=== PATIENT | male | born 1945 | race Caucasian/White ===

== ENCOUNTER 2016-10-30 02:47 | Inpatient (IN) | payer MEDICARE ==
[~2016-10-30] VITALS: Ht 185.4 cm; Wt 78.5 kg
[2016-10-30] VITALS (62 sets, daily range): BP systolic 72–141; BP diastolic 47–109; Ht 185.4 cm; Wt 78.5 kg
--- NOTE | ~2016-10-30 | EC ---
PATIENT:PEYTON YATES DATE OF SERVICE: 10/30/16 SEX: M MEDICAL RECORD: [id number] DATE OF : 41 LOCATION:[facility] D230 AGE OF PATIENT: 71 ADMISSION DATE: 10/30/16 REFERRING PHYSICIAN: INTERPRETING PHYSICIAN: CHRIS BARRAZA MD ECHOCARDIOGRAM REPORT ECHO CHARGES 5 ECHO LIMITED CLINICAL DIAGNOSIS: CHF ECHOCARDIOGRAPHIC MEASUREMENTS (adult normal given) AC root (d.<3.7cm) LV Septum d (<1.2 cm> Valve Excursion LV Septum (systole) Left Atria (s.<4.0cm> 4.2 LVPW d(<1.2cm) RV (d.<2.3cm) 4.2 LVPW (sytole) LV diastole(<5.6CM) 5.1 MV E-F(>70mm/sec) 3.8 LV systole LVOT Diameter MV exc.(>10mm) Est.ejection fraction (50-75%) Pericardial Effusion N DOPPLER: LVIT A E LA RVSP LVOT AOP1/2T Asc. Ao RVOT RA PA AV Gradient Peak AV Mean AV Area MV Gradient Peak MV Mean MV Area COMMENTS: Machine Coil Assembler: Leon NAVARRO Paster Supervisor:2 Dr. Roque TAPE# PACS DATE OF SERVICE: 11/06/2016 Echocardiogram FINDINGS: 1. Left ventricular chamber size is within normal limits. Left ventricular systolic function is normal. Overall ejection fraction 50%. 2. Left atrium is enlarged at 4.2 cm. Right atrium and right ventricular chamber sizes are as well mildly dilated. 3. Valvular structures have normal structure and motion. ECHOCARDIOGRAM REPORT [id number] PEYTON YATES 4. Doppler interrogation reveals no significant valvular insufficiency or stenosis. 5. No evidence of pericardial effusion or left ventricular thrombus. TRANSINT:[id number] Voice Confirmation ID: [id number] DOCUMENT ID: [id number] 11/13/2016 Edited to correct date of service, [facility]. CHRIS BARRAZA MD CC: [id number] DICTATION DATE: 11/06/16 1529 PYROMETER TEMPERATURE REGULATOR: 11/06/16 1606 ADM IN [place] [id number] [place] [address]
--- NOTE | ~2016-10-30 | CN ---
PATIENT NAME:PEYTON WASHBURN MEDICAL RECORD: [id number] : 41 LOCATION:[facility].2311 ADMIT DATE: 10/30/16 ACCOUNT: [id number] CONSULTING PHYSICIAN: VANDANA WALKER MD REFERRING PHYSICIAN: BRADY CANTU MD DATE OF CONSULTATION: 10/30/2016 CONSULT REQUESTING PHYSICIAN: Dr. Brady Cantu. REASON FOR CONSULTATION: Vent management and septic shock. HISTORY OF PRESENT ILLNESS: Mr. Washburn is a 71-year-old gentleman who was transferred from outside facility. On arrival to the ER, the patient was hypotensive, hypoxic with SpO2 in mid 70s and the patient was electively intubated and IV fluid resuscitation. Now, the patient is orally intubated and sedated. The history was taken mainly by talking to the nursing staff and talking to the ER doctor as well as with Dr. Cantu. REVIEW OF SYSTEMS: The detail is not obtainable. PAST MEDICAL HISTORY: 1. Dementia. 2. Chronic dysphagia. 3. Abnormal electrolytes. 4. Peripheral vascular disease. 5. Schizophrenia. 6. Osteoporosis. 7. History of tobacco dependence in the past. 8. Coronary artery disease. 9. History of renal failure. PAST SURGICAL HISTORY: He is status post PEG placement. ALLERGIES: There are no known drug allergies. PRESENT MEDICATIONS: [employer] was reviewed. PERSONAL AND SOCIAL HISTORY: The detail is not obtainable, but he is an ex-smoker, nondrinker. FAMILY HISTORY: Noncontributory. PHYSICAL EXAMINATION: GENERAL: Now, the patient is orally intubated and sedated. VITAL SIGNS: The blood pressure is 95/63, pulse is 67, respiration is 16, temperature 100.4, SPO2 is 100% on mechanical ventilation, assist control with 65% oxygen. HEENT: Conjunctivae is pink, sclerae nonicteric. NECK: Supple, no JVD. CHEST: There are crackles at the left base. No wheezing. HEART: Rhythm regular, normal sound, no murmur. ABDOMEN: Soft, bowel sounds present. No hepatosplenomegaly. The PEG tube is in place. RECTAL: Deferred. EXTREMITIES: No cyanosis, no clubbing, no pedal edema. CONSULT REPORT [id number] PEYTON WASHBURN SKIN: Warm, normal turgor. CENTRAL NERVOUS SYSTEM: The patient is orally intubated and sedated. LABORATORY DATA: CBC: WBC 17.3, hemoglobin 15.1, hematocrit 46.6. The platelet count is 232. Chemistry: Sodium 136, potassium 4.9, BUN is 38, creatinine 1.1, glucose 126. ABG on admission, the pH is 7.47, the pCO2 is 44.5, the pO2 is 216, bicarbonate is 33.0. IMPRESSION: 1. Acute hypoxic respiratory failure, possible secondary to aspiration pneumonia. 2. SIRS type of syndrome. 3. Dehydration. 4. Hypotension, which could be secondary to dehydration, as well as secondary to sepsis. 5. Pneumonia, left lower lobe, possible community-acquired pneumonia, possible aspiration with the patient chronic dysphagia. 6. Leukocytosis secondary to pneumonia. 7. Dementia. 8. Hematuria. 9. Chronic dysphagia status post PEG tube placement. 10. Multiple psych issues. RECOMMENDATION: 1. We will continue mechanical ventilation, adjust the setting. 2. Vancomycin, Levaquin and Zosyn IV. 3. DVT prophylaxis with SCDs. We will hold the Lovenox as the patient has significant hematuria. 4. GI stress ulcer prevention Protonix IV. 5. Sedation. 6. IV fluid resuscitation to keep the CVP 10-12. 7. Start his tube feeding. Follow up labs and chest radiograph in the morning. Dr. Cantu, once again thanks for involving me in the care of Mr. Washburn. TRANSINT:[id number] Voice Confirmation ID: [id number] DOCUMENT ID: [id number] VANDANA WALKER MD CC: BRADY CANTU MD [id number] DICTATION DATE: 10/30/161422 SUPERVISOR PRESSING DEPARTMENT: 10/30/162116 ADM IN [place] [id number] [place] [id number]
[2016-10-30 03:35] LABS: BASOPHILS 0.2 % (0.0-2.0); EOSINOPHILS 0 % (0-7); HEMATOCRIT 46.6 % (42.0-54.0); HEMOGLOBIN 15.1 g/dL (13.5-17.5); IMMATURE GRANULOCYTES 0.7 % (0-5); LYMPHOCYTES 24.1 % (15-50); MCH 32.1 pg (26.0-34.0); MCHC 32.4 g/dL (31.0-37.0); MCV 99.1 fL (80.0-100.0); MEAN PLATELET VOLUME 9.8 fL (7.4-10.4); MONOCYTES 14.8 % (2-11); NEUTROPHILS 60.2 % (40-80); PLATELET COUNT 232 10x3/uL (130-400); RDW 13.8 % (11.5-14.5); WBC 17.3 10x3/uL (4.8-10.8)
[2016-10-30 04:37] LABS: ALBUMIN 3.1 g/dL (3.4-5.0); ALKALINE PHOSPHATASE 78 U/L (46-116); ALT (SGPT) 10 U/L (10-68); BILIRUBIN - TOTAL 0.41 mg/dL (0.2-1.3); CALC OSMOLALITY 282 mosm/kg (275-300); CALCIUM 9.7 mg/dL (8.5-10.1); CARBON DIOXIDE 33.5 mmol/L (21.0-32.0); CHLORIDE - SERUM 94 mmol/L (98-107); CREATININE - SERUM 1.1 mg/dL (0.6-1.3); GLUCOSE 126 mg/dL (74-106); POTASSIUM - SERUM 4.9 mmol/L (3.5-5.1); PROTEIN - SERUM 7.9 g/dL (6.4-8.2); SODIUM 136 mmol/L (136-145); UREA NITROGEN 38 mg/dL (7-18); eGFR NON AFRICAN AMERICAN 70 mL/min (90-120)
[2016-10-30 04:44] LABS: CKMB 0.2 U/L (0.0-3.6); PRO BNP 568 pg/mL (0-125)
[2016-10-30 04:45] LABS: TROPONIN-I < 0.017 ng/mL (0.000-0.060)
[2016-10-30 05:17] LABS: UDS - AMPHET NEGATIVE QUAL (NEGATIVE); UDS - BARB NEGATIVE QUAL (NEGATIVE); UDS - BENZO NEGATIVE QUAL (NEGATIVE); UDS - COCAINE NEGATIVE QUAL (NEGATIVE); UDS - METH NEGATIVE QUAL (NEGATIVE); UDS - OPIATE NEGATIVE QUAL (NEGATIVE); UDS - PCP NEGATIVE QUAL (NEGATIVE); UDS - THC NEGATIVE QUAL (NEGATIVE)
[2016-10-30 05:30] LABS: APPEARANCE HAZY (CLEAR); BILIRUBIN NEGATIVE (NEGATIVE); COLOR YELLOW (YELLOW); EPITHELIAL CELLS RARE /hpf (0-5); GLUCOSE NEGATIVE (NEGATIVE); KETONE NEGATIVE (NEGATIVE); LEUKOCYTE ESTERASE TRACE (NEGATIVE); NITRITE NEGATIVE (NEGATIVE); PROTEIN NEGATIVE (NEGATIVE); RED CELLS - URINE OCC /hpf (0-5); UROBILINOGEN NORMAL (NORMAL); WHITE CELLS - URINE OCC /hpf (0-5)
[2016-10-30 05:31] LABS: BACTERIA NONE SEEN /hpf (NONE SEEN)
[2016-10-30 05:34] LABS: AMORPHOUS SEDIMENT >1+ /lpf (NONE SEEN)
--- NOTE | 2016-10-30 08:07 | NUR ---
DR. BONE AT BEDSIDE FOR CVL PLACEMENT.
--- NOTE | 2016-10-30 10:34 | NUR ---
PATIENT ON VENT-NURSE STATED HE WAS NOT ABLE TO SEE ANYONE AT THIS TIME. CM CALLED NUMBER ON FACE SHEET AND IT WAS KAMRAN CABALLERO AND THEY DO NOT KNOW OF THIS PATIENT. CM CALLED BUSINESS OFFICE TO MAKE AWARE OF PHONE NUMBER. CM WILL CONTINUE TO FOLLOW PATIENT.
--- NOTE | 2016-10-30 13:56 | NUR ---
CVP SET UP. CVP =4.
--- NOTE | 2016-10-30 18:59 | NUR ---
DR. BARRAZA PAGED FOR HR IN THE 30'S WITH FREQUENT PVC'S.
--- NOTE | 2016-10-30 19:00 | NUR ---
REPORT RECIEVED, INITIAL ASSESSMENT COMPLETE, PLEASE SEE FLOW SHEETS FOR DETAILS. BED LOW AND LOCKED. PT SEDATED AND REACTS TO TACTILE STIMULI. DOES NOT RESPOND TO QUESTIONS. PVC'S NOTED ON TELEMETRY, DR BARRAZA AWARE OF NO PULSE WITH PVC BEATS. ON LEVOPHED, WILL TITRATE FOR BP NEEDED. URINE RED. WILL CONTINUE POC.
--- NOTE | 2016-10-30 21:00 | NUR ---
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 PT STABALIZED NOW. TITRATED LEVOPHED FOR BP. O2 98%. WILL CONTINUE POC.
--- NOTE | 2016-10-30 23:00 | NUR ---
ORAL CARE AND TURNING PROVIDED, BED LOW AND LOCKED, SUCTIONING ALSO PROVIDED. TITRATING PROPOFOL FOR SEDATION AND LEVOPHED FOR BP NEEDED. WILL CONTINUE POC.
[2016-10-31] VITALS (88 sets, daily range): BP systolic 98–164; BP diastolic 57–114
--- NOTE | 2016-10-31 01:00 | NUR ---
ORAL CARE AND TURNING PROVIDED, BED LOW AND LOCKED, TITRATING PROPOFOL AND LEVOPHED NEED. WILL CONTINUE POC.
--- NOTE | 2016-10-31 03:00 | NUR ---
REASSESSMENT COMPELTE, PLEASE SEE FLOW SHEETS FOR DETAILS. ORAL CARE AND TURNING PROVIDED. BED LOW AND LOCKED, TITRATING MEDS NEEDED. WILL CONTINUE POC.
[2016-10-31 04:17] LABS: BASOPHILS 0.2 % (0-2); EOSINOPHILS 0.2 % (0-7); IMMATURE GRANULOCYTES 1.5 % (0-5); LYMPHOCYTES 11.6 % (15-50); MCH 31.6 pg (26.0-34.0); MCHC 32.8 g/dL (31.0-37.0); MONOCYTES 10.4 % (2-11); NEUTROPHILS 76.1 % (40-80); PLATELET COUNT 275 10x3/uL (130-400); RDW 14.1 % (11.5-14.5); WBC 19.1 10x3/uL (4.8-10.8)
[2016-10-31 04:20] LABS: HEMOGLOBIN 11.8 g/dL (13.5-17.5); MCV 96.3 fL (80.0-100.0); RBC 3.74 10x6/uL (4.20-6.10)
[2016-10-31 04:46] LABS: CALCIUM 8.5 mg/dL (8.5-10.1); CHLORIDE - SERUM 106 mmol/L (98-107); CREATININE - SERUM 0.9 mg/dL (0.6-1.3); GLUCOSE 138 mg/dL (74-106); MAGNESIUM - SERUM 1.6 mg/dL (1.8-2.4); PRO BNP 881 pg/mL (0-125); SODIUM 140 mmol/L (136-145); THYROID STIMULATING HORMONE 1.96 uIU/mL (0.36-3.74); eGFR NON AFRICAN AMERICAN 88 mL/min (90-120)
[2016-10-31 04:52] LABS: CALC OSMOLALITY 283 mosm/kg (275-300); CARBON DIOXIDE 23.2 mmol/L (21.0-32.0); POTASSIUM - SERUM 3.1 mmol/L (3.5-5.1); UREA NITROGEN 21 mg/dL (7-18)
--- NOTE | 2016-10-31 05:00 | NUR ---
ORAL CARE AND TURNING PROVIDED, BED LOW AND LOCKED. TITRATING LEVOPHED AND PROPOFOL NEEDED. WILL CONTINUE POC.
--- NOTE | 2016-10-31 10:29 | NUR ---
HEART RATE DROPPED TO 28 BPM, ATROPINE IV GIVEN, 1MG
--- NOTE | 2016-10-31 11:15 | NUR ---
PATIENT NOAH DOWN TO 28 BPM, PLACED ON EXTERNAL PACER AT 30Ma AT A RATE OF 60 BPM
--- NOTE | 2016-10-31 11:19 | HP ---
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 The patient was evaluated in the Emergency Room and was felt a bit hypothermic as well as hypoxic, was put on oxygen, did not improve his situation. The patient was given Lasix and albuterol en route and then requiring intubation. The patient has presently been stabilized with a vent and admitted to the ICU. Pulmonary consultation has been obtained. Central line was placed by surgery and the patient's old records were used for review of his history. The patient evidently is a resident of an outlying longterm. He is being cared for there, had developed some increased respiratory distress and was sent to a local facility that did not have pulmonary on case and then transferred to our facility. PAST MEDICAL HISTORY: Significant for respiratory distress, history of renal failure, dementia, abnormal electrolytes, peripheral vascular disease, schizophrenia, osteoporosis, nicotine dependence in the past, coronary artery disease, dysphagia, and now sepsis. PAST SURGICAL HISTORY: Includes a PEG placement. REVIEW OF SYSTEMS: Unobtainable. MEDICATIONS: As listed on MAR sheet. ALLERGIES: No known drug allergies at the present time. PHYSICAL EXAMINATION: VITAL SIGNS: On his physical as below. GENERAL: He is a well-developed, well-nourished 71-year-old white male on the ventilator with evidence of arrhythmias on telemetry that is sedated, has a PEG placed. HEENT: Pupils are sluggish to react to light. Mucous membranes are tacky but no trauma is noted. LUNGS: Have very coarse rhonchi heard in the bilateral upper lung gabriel. HEART: Regular rate and rhythm with a I/ systolic ejection murmur. ABDOMEN: Soft. PEG is present, nontender, positive bowel sounds. No hepatosplenomegaly, no masses. EXTREMITIES: No edema is noted. NEUROLOGIC: Again, sedated. ASSESSMENT: 1. Respiratory distress. 2. Probable aspiration pneumonia. 3. Chronic dysphagia, on percutaneous endoscopic gastrostomy tube feedings. 4. Possible sepsis. PLAN: The patient will be admitted to ICU. Pulmonary consultation. We will check laboratory appropriately. Cardiology evaluation for arrhythmia and check laboratory appropriately. HISTORY AND PHYSICAL [id number] TRUDYPEYTON WOOD TRANSINT:[id number] Voice Confirmation ID: [id number] DOCUMENT ID: [id number] CAMRON WESLEY MD at 1119 CC: [id number] DICTATION DATE: 10/30/16 1025 FUR BLOWING MACHINE ATTENDANT: 10/30/16 1056 ADM IN [place] [id number] [place] [address]
--- NOTE | 2016-10-31 11:33 | NUR ---
DR. BARRAZA PRESENT AND ASSESSING PATIENT.
--- NOTE | 2016-10-31 12:15 | NUR ---
DR. BARRAZA CALLED WITH NEW ORDER TO HOLD EXT. PACER FOR NOW.
--- NOTE | 2016-10-31 15:00 | NUR ---
PULSE HAS STABALIZED AT PRESENT
--- NOTE | 2016-10-31 19:00 | NUR ---
REASSESSMENT COMPLETE, PLEASE SEE FLOW SHEETS FOR DETAILS. BED LOW AND LOCKED. PT NOW RECIEVING DOBUTAMINE IV FOR HR. BP STABLE WITH LEVOPHED AND PT FULLY SEDATED ON PROPOFOL. VSS ATT, WILL CONTINUE POC.
[2016-10-31 20:12] LABS: MAGNESIUM - SERUM 1.5 mg/dL (1.8-2.4); PHOSPHOROUS 2.3 mg/dL (2.5-4.9)
--- NOTE | 2016-10-31 21:00 | NUR ---
ORAL CARE AND TURNING PROVIDED. BED LOW AND LOCKED, VSS WITH TITRATING LEVOPHED AND PROPOFOL NEEDED. WILL CONTINUE POC.
--- NOTE | 2016-10-31 23:00 | NUR ---
REASSESSMENT COMPLETE, PLEASE SEE FLOW SHEETS FOR DETAILS. ORAL CARE AND TURNING PROVIDED. TITRATING PROPOFOL AND LEVOPHED NEEDED. VSS ATT, BED LOW AND LOCKED, RESTRAINTS CHECKED AND REAPPLIED. WILL CONTINUE POC.
[2016-11-01] VITALS (82 sets, daily range): BP systolic 74–167; BP diastolic 55–117
--- NOTE | 2016-11-01 00:56 | NUR ---
ORAL CARE AND TURNING PROVIDED ATT. BED LOW AND LOCKED. PT IS SEDATED AND OPENS EYES TO PAIN. TITRATING PROPOFOL AND LEVOPHED NEEDED TO CONTROL SEDATION AND BP RESPECTIVELY. VSS, WILL CONTINUE POC.
--- NOTE | 2016-11-01 03:00 | NUR ---
REASSESSMENT COMPLETE, PLEASE SEE FLOW SHEETS FOR DETAILS. BED LOW AND LOCKED. TITRATING MEDS NEEDED PER ORDERS. RESTRAINTS CHECKED AND SECURED WITH QUICK RELEASE KNOTS. WILL CONTINUE POC.
[2016-11-01 04:50] LABS: BASOPHILS 0.5 % (0-2); EOSINOPHILS 1.4 % (0-7); HEMATOCRIT 37.3 % (42.0-54.0); HEMOGLOBIN 12.2 g/dL (13.5-17.5); IMMATURE GRANULOCYTES 5.3 % (0-5); LYMPHOCYTES 11.9 % (15-50); MCH 31.4 pg (26.0-34.0); MCHC 32.7 g/dL (31.0-37.0); MCV 95.9 fL (80.0-100.0); MEAN PLATELET VOLUME 8.8 fL (7.4-10.4); MONOCYTES 8.6 % (2-11); NEUTROPHILS 72.3 % (40-80); PLATELET COUNT 261 10x3/uL (130-400); RBC 3.89 10x6/uL (4.20-6.10); RDW 14.2 % (11.5-14.5); WBC 14.7 10x3/uL (4.8-10.8)
--- NOTE | 2016-11-01 05:00 | NUR ---
ORAL CARE AND TURNING PROVIDED. BED LOW AND LOCKED. TITRATING MEDS ORDERED. WILL CONTINUE POC.
[2016-11-01 05:31] LABS: ALBUMIN 1.6 g/dL (3.4-5.0); ALKALINE PHOSPHATASE 53 U/L (46-116); BILIRUBIN - TOTAL 0.49 mg/dL (0.2-1.3); CALCIUM 8.6 mg/dL (8.5-10.1); CARBON DIOXIDE 21.6 mmol/L (21.0-32.0); CHLORIDE - SERUM 114 mmol/L (98-107); CREATININE - SERUM 0.7 mg/dL (0.6-1.3); GLUCOSE 149 mg/dL (74-106); POTASSIUM - SERUM 3.4 mmol/L (3.5-5.1); PRO BNP 1311 pg/mL (0-125); PROTEIN - SERUM 6.1 g/dL (6.4-8.2); SODIUM 146 mmol/L (136-145); eGFR NON AFRICAN AMERICAN > 90 mL/min (90-120)
[2016-11-01 05:34] LABS: ALT (SGPT) 4 U/L (10-68); CALC OSMOLALITY 292 mosm/kg (275-300); UREA NITROGEN 10 mg/dL (7-18)
--- NOTE | 2016-11-01 09:45 | NUR ---
FEEDING PUMP ORDERED
--- NOTE | 2016-11-01 10:25 | NUR ---
FOLLOW UP SERUM K+ DRAWN AND DELIVERED TO LAB
--- NOTE | 2016-11-01 10:49 | NUR ---
TF OF PULMOCARE STARTED TO PEG TUBE AT 10ML/HR VIA PUMP, GOAL OF 30ML/HR.
--- NOTE | 2016-11-01 11:00 | NUR ---
DRIPS REQUIRE CONSTANT MONITORING AND TITRATION TO KEEP PULSE >50, NO CHANGE NOTED AT PRESENT
--- NOTE | 2016-11-01 19:00 | NUR ---
REPORT RECIEVED, INITIAL ASSESSMENT COMPLETE, PLEASE SEE FLOW SHEETS FOR DETAILS. BED LOW AND LOCKED, PT SEDATED BUT WITH RESTRAINTS ON WITH QUICK RELEASE KNOTS BECAUSE WHEN HE COMES OUT OF SEDATION PULLS AT TUBES AND LINES. VSS ATT, WILL CONTINUE POC.
--- NOTE | 2016-11-01 21:00 | NUR ---
ORAL CARE AND TURNING PROVIDED. BED LOW AND LOCKED, TITRATING MEDS NEEDED. VSS ATT, WILL CONTINUE POC.
--- NOTE | 2016-11-01 23:00 | NUR ---
ORAL CARE AND TURNING PROVIDED. REASSESSMENT COMPLETE, PLEASE SEE FLOW SHEETS FOR DETAILS. VSS, WILL CONTINUE POC.
[2016-11-02] VITALS (41 sets, daily range): BP systolic 23–150; BP diastolic 45–98
--- NOTE | 2016-11-02 01:00 | NUR ---
ORAL CARE AND TURNING PROVIDED. BED LOW AND LOCKED. VSS, WILL CONTINUE POC.
--- NOTE | 2016-11-02 03:00 | NUR ---
ORAL CARE AND TURNING PROVIDED. REASSESSMENT COMPLETE, PLEASE SEE FLOW SHEETS FOR DETAILS. BED LOW AND LOCKED. VSS, WILL CONTINUE POC.
[2016-11-02 04:57] LABS: EOSINOPHILS 2.8 % (0-7); HEMOGLOBIN 12.5 g/dL (13.5-17.5); IMMATURE GRANULOCYTES 5.2 % (0-5); LYMPHOCYTES 9.7 % (15-50); MCH 31.3 pg (26.0-34.0); MCHC 32.9 g/dL (31.0-37.0); MCV 95.2 fL (80.0-100.0); MEAN PLATELET VOLUME 8.7 fL (7.4-10.4); MONOCYTES 8.3 % (2-11); PLATELET COUNT 283 10x3/uL (130-400); RBC 3.99 10x6/uL (4.20-6.10); RDW 14.2 % (11.5-14.5); WBC 15.1 10x3/uL (4.8-10.8)
--- NOTE | 2016-11-02 04:59 | NUR ---
ORAL CARE AND TURNING PROVIDED, BED LOW AND LOCKED. VSS, WILL CONTINUE POC.
[2016-11-02 05:36] LABS: CALC OSMOLALITY 292 mosm/kg (275-300); CARBON DIOXIDE 20.5 mmol/L (21.0-32.0); CHLORIDE - SERUM 112 mmol/L (98-107); CREATININE - SERUM 0.7 mg/dL (0.6-1.3); GLUCOSE 168 mg/dL (74-106); POTASSIUM - SERUM 3.1 mmol/L (3.5-5.1); SODIUM 146 mmol/L (136-145); VANCOMYCIN - TROUGH 24.3 ug/mL (10.0-20.0); eGFR NON AFRICAN AMERICAN > 90 mL/min (90-120)
[2016-11-02 05:38] LABS: UREA NITROGEN 7 mg/dL (7-18)
--- NOTE | 2016-11-02 09:33 | NUR ---
NUTRITION MONITORING & EVAL CHART REVIEWED, SPOKE WITH NURSING. TUBE FEEDS BEING ADVANCED TO GOAL RATE 45 CC/HR. PT REMAINS ON VENT. RD FOLLOWING
--- NOTE | 2016-11-02 10:48 | NUR ---
PATIENT CONDITION REPORTED TO FRUIT RECEIVER FROM PATIENTS CURRENT FACILITY. SHE IS TO CONTACT A MARIZOL GRIGSBY IN [facility] TO PATIENTS CONDITION AND POSSIBILITY OF MAKEING PATIENT DNR STATUS.
--- NOTE | 2016-11-02 14:34 | NUR ---
SALVATORE SPOKE WITH RICKY CRUM AT [facility] ([phone]) REGARDING DNR STATUS. RICKY STATED THAT IN ORDER FOR PATIENT TO BE CHANGED TO DNR STATUS SHE WOULD HAVE TO SUBMIT DOCUMENTATION FROM TWO OF OUR PHYSICIANS TO COURT FOR APPROVAL TO CHANGE CODE STATUS TO DNR. RICKY STATED THAT ONCE THIS DOCUMENTATION IS RECIEVED THE COURT APPROVAL USUALLY TAKES A FEW DAYS. DOCUMENTATION NEEDED ABOUT: WHAT'S WRONG WITH THE PATIENT, THAT THE PATIENT IS TERMINAL, THAT IT IS CAUSING MORE HARM THAN GOOD TO KEEP THE PATIENT ON THE VENT, THAT THE PHYSICIAN THINKS THE PATIENT SHOULD BE DNR FOR QUALITY OF LIFE AND THAT THE PATIENT WOULD AFTER EXTUBATION. ONCE TWO PHYSICIANS FROM OUR [facility] DOCUMENT THE ABOVE INFORMATION, CM WILL GET NOTES NOTARIZED, FAX COPIES TO RICKY AT [phone] AND MAIL ORIGINAL NOTES TO RICKY AT [address] [place] [address]. RICKY WILL SUBMIT DOCUMENTATION TO COURT WHEN SHE RECEIVES THE ORIGINAL NOTES IN THE MAIL. CM WILL CONTINUE TO FOLLOW AND ASSSIST WITH DISCHARGE PLANNING / NEEDS.
--- NOTE | 2016-11-02 15:36 | NUR ---
COMPLETE BATH AND LINEN CHANGE,
--- NOTE | 2016-11-02 15:56 | NUR ---
CM RECEIVED CALL FROM ZARINA DOW WITH THE [facility] [employer] OFFICE. ZARINA INFORMED CM THAT HER OFFICE WAS ASKED TO WORK ON ADVANCED DIRECTIVE PAPERWORK FOR PATIENT. ZARINA STATED THAT HER OFFICE NEEDED DOCUMENTATION FROM TWO PHYSICIANS STATING: WHAT IS WRONG WITH THE PATIENT, WHY HE IS TERMINAL, THAT PHYSICIAN RECOMMENDS TAKING THE PATIENT OFF THE VENT AND WHY, THAT THE PHYSICIAN DOES NOT RECOMMEND CPR BECAUSE OF THE INJURY IT WOULD CAUSE THE PATIENT, AND THAT THE PHYSICIAN RECOMMENDS HOSPICE. ZARINA STATED THAT ONCE TWO OF OUR PHYSICIAN'S DOCUMENT THE ABOVE INFORMATION, CM WOULD NEED TO GET THE DOCUMENTATION NOTARIZED, FAXED TO ZARINA'S OFFICE AT [phone] AND MAIL ORIGINAL DOCUMENTAITON TO [facility] OFFICE FOR [facility], [address] [place] [id number]. ZARINA STATED THAT ONCE HER OFFICE RECEIVES THE ORIGINAL DOCUMENTATION THAT HER OFFICE COULD APPROVE THE ADVANCED DIRECTIVE PAPERWORK. ZARINA STATED THAT WHEN SHE RECEIVED THE DOCUMENTATION SHE WOULD CONTACT CM TO LET US KNOW THAT THE ADVANCED DIRECTIVE PAPERWORK WAS APPROVED, THAT PATIENT COULD BE DISCHARGED TO HOSPICE AND PATIENT COULD BE EXTUBATED. CM LEFT COPY OF THIS NOTE WITH ICU TO RELAY TO PATIENT'S PHYSICIANS. CM WILL FOLLOW UP WITH DISHARGE PLANNING / NEEDS NEEDED.
--- NOTE | 2016-11-02 19:00 | NUR ---
REPORT RECEIVED. ASSESSMENT COMPLETED. PATIENT IN SEMIFOWLERS POSITION WITH EYES CLOSED. NO VISUAL CUES OF DISTRESS NOTED.
--- NOTE | 2016-11-02 21:30 | NUR ---
NO VISITORS AT THIS TIME.
--- NOTE | 2016-11-02 23:44 | NUR ---
PATIENT REPOSITIONED FOR COMFORT. ORAL CARE COMPLETED. NO VISUAL CUES OF DISTRESS NOTED.
[2016-11-03] VITALS (71 sets, daily range): BP systolic 56–138; BP diastolic 39–80
[2016-11-03 05:42] LABS: BASOPHILS 0.7 % (0-2); EOSINOPHILS 3.3 % (0-7); HEMATOCRIT 35.2 % (42.0-54.0); HEMOGLOBIN 11.5 g/dL (13.5-17.5); IMMATURE GRANULOCYTES 7.7 % (0-5); LYMPHOCYTES 10.6 % (15-50); MCH 31.2 pg (26.0-34.0); MCHC 32.7 g/dL (31.0-37.0); MCV 95.4 fL (80.0-100.0); MEAN PLATELET VOLUME 8.7 fL (7.4-10.4); MONOCYTES 9.4 % (2-11); NEUTROPHILS 68.3 % (40-80); PLATELET COUNT 258 10x3/uL (130-400); RBC 3.69 10x6/uL (4.20-6.10); RDW 14.6 % (11.5-14.5); WBC 16.5 10x3/uL (4.8-10.8)
[2016-11-03] MEDS ORDERED: OMEPRAZOLE20 M1 PT (05:56)
[2016-11-03] MEDS ORDERED: SYNTHROID100 MCG PT (05:56)
[2016-11-03] MEDS ORDERED: ALDACTONE25 MG PT (05:57)
[2016-11-03] MEDS ORDERED: BAYER CHEWABLE81 MG PT (05:57)
[2016-11-03] MEDS ORDERED: TUMS X-STR300 MG PT (05:58)
[2016-11-03] MEDS ORDERED: NATURAL VEGETA283 G1 PT (05:58)
[2016-11-03] MEDS ORDERED: LASIX40 MG PT (05:59)
[2016-11-03] MEDS ORDERED: MAG-OX 400 MG400 MG PT (05:59)
[2016-11-03] MEDS ORDERED: VITAMIN D3400 UNI1 PT (06:00)
[2016-11-03] MEDS ORDERED: DEPAKENE 2250 MG/5 M PT (06:01)
[2016-11-03] MEDS ORDERED: PROSTAT PT (06:02)
[2016-11-03] MEDS ORDERED: SEROQUEL100 MG PT (06:03)
[2016-11-03] MEDS ORDERED: ATIVAN0.5 MG PT ×2 (06:04→06:06)
[2016-11-03] MEDS ORDERED: MILK OF MAGNESI30 ML PT (06:04)
[2016-11-03] MEDS ORDERED: ACETAMINOPHEN325 MG PT (06:05)
[2016-11-03] MEDS ORDERED: LOMOTIL TABLET1 TAB PT (06:06)
--- NOTE | 2016-11-03 07:00 | NUR ---
REC'D REPORT AND RESUMED CARE, ETT TO VENTILATTION AND SECURED, PRESSORS AND SEDATION IN USE, VSS, AROUSES TO PAIN, ASSESSMENT COMPLETE PER FLOWSHEET, DOEDS NOT FOLLOW COMMANDS
[2016-11-03 07:06] LABS: ALBUMIN 1.6 g/dL (3.4-5.0); ALKALINE PHOSPHATASE 97 U/L (46-116); ALT (SGPT) 6 U/L (10-68); BILIRUBIN - TOTAL 0.32 mg/dL (0.2-1.3); CALC OSMOLALITY 288 mosm/kg (275-300); CALCIUM 8.3 mg/dL (8.5-10.1); CARBON DIOXIDE 20.2 mmol/L (21.0-32.0); CHLORIDE - SERUM 111 mmol/L (98-107); CREATININE - SERUM 0.7 mg/dL (0.6-1.3); GLUCOSE 183 mg/dL (74-106); MAGNESIUM - SERUM 1.4 mg/dL (1.8-2.4); POTASSIUM - SERUM 4.3 mmol/L (3.5-5.1); PROTEIN - SERUM 5.3 g/dL (6.4-8.2); SODIUM 143 mmol/L (136-145); eGFR NON AFRICAN AMERICAN > 90 mL/min (90-120)
[2016-11-03 07:09] LABS: UREA NITROGEN 10 mg/dL (7-18)
--- NOTE | 2016-11-03 09:38 | NUR ---
NUTRITION MONITORING & EVAL PT REMAINS ON VENT, TOLERATING PULMOCARE @ GOAL RATE 45 CC/HR. 100 CC H2O FLUSH Q [address] FOLLOWING
--- NOTE | 2016-11-03 10:00 | NUR ---
DR WALKER HERE FOR EVAL, SEDATION OF AND CHANGED TO CPAP
--- NOTE | 2016-11-03 12:15 | NUR ---
DOPAMINE OFF PER DR BARRAZA
--- NOTE | 2016-11-03 12:30 | NUR ---
RESP 45, AND SBP 56, DOPAMINE BACK ON AT 15MCG, AND SIMV INITIATED AT A RATE OF 12
--- NOTE | 2016-11-03 15:00 | NUR ---
RESTING WITH NO SIGNS OF DISTRESS, VENT IN SIMV MODE, VSS, ASSESSMENT COMPLETED PER FLOWSHEET, REPOSITIONED TO LEFT SIDE WITH PILLOW TO BACK AND HEELS FLOATED, DOPAMINE CONTINUES AT 11 MCG, NO ACUTE CHANGE FROM PREVIOUS
--- NOTE | 2016-11-03 16:15 | NUR ---
I AND O'S COMPLETED PER FLOWSHEET
--- NOTE | 2016-11-03 19:30 | NUR ---
REPORT RECEIVED AND CARE ASSUMED. INITIAL SHIFT ASSESSMENT PER FLOWSHEET. IVF PER IV SHEET WITH ALL CHANGES DOCUMENTED THERE. PT IS CURRENTLY ON DOPAMINE TITRATING TO MAINTAIN HR >50 AND SBP <90 >140. PT IS CURRENTLY BEING SUPPORTED PER VENTILATOR AND ALL SETTINGS VERIFIED. PT IS TOTAL CARE WITH ALL ADLS PROVIDED. IF RECEIVING PULMOCARE AT 45ML/HR WITH A 100ML WATER FLUSH Q4H PROGRAMMED INTO THE PUMP. PLACEMENT VERIFIED WITH AIR BOLUS AND RESIDUAL OF 10ML RETURNED AND FLUSHED. PT DOES HAVE SEVERAL AREAS OF CONCERN IN REGARDS TO SKIN AND THESE ARE OUTLINED ON FLOWSHEET. PT DOES HAVE GENERALIZED EDEMA AND ARMS ARE ELEVATED ON PILLOWS AND HEELS FLOATED. PT DOES HAVE HEEL PROTECTOR ON LEFT FOOT WITH NO PRESSURE TO LEFT HEEL. PIV X 2, ONE TO RIGHT F/A AND 1 TO LEFT HAND BOTH 20G WERE OCCLUDED, UNABLE TO FLUSH. BOTH D/C'D WITH TIPS INTACT. 2X2 DRESSING APPLIED TO EACH. DEFIBRILLATOR PADS REMOVED D/T POTENTIAL FOR SKIN IRRITATION WITH PROLONGED EXPOSURE AND LEFT LATERAL CHEST WITH NOTED IRRITATION. SKIN LEFT OPEN TO AIR. PT BEING MONITORED PER STANDARD ICU PROTOCOL WITH ALL ALARMS VERIFIED AND SET. ALL IVF AND LINES ARE CURRENT AND ARE DATED APPROPRIATE.
--- NOTE | 2016-11-03 21:00 | NUR ---
NO VISITORS AT THIS TIME. PT RESTING QUIETLY TOLERATING VENTILATOR WELL. CONTINUE TO TITRATE DOPAMINE TOLERATED
--- NOTE | 2016-11-03 23:00 | NUR ---
SHIFT REASSESSMENT COMPLETED WITH NO SIGNIFICANT CHANGES. SEE FLOWSHEET
--- NOTE | 2016-11-03 23:30 | NUR ---
CALL RECEIVED FROM A MALE IDENTIFYING SELF BETI CUADRA RN EARLY CHILDHOOD EDUCATOR AIDE AT [facility], WHERE PT IS A RESIDENT OF. VERY LIMITED INFORMATION CONFIRMED WITH PERSON. CHART SEARCHED AND CALL MADE FROM INFORMATION ON FACE SHEET WAS ABLE TO MAKE CONTACT WITH BETI CUADRA AND CONFIRM HIS IDENTITY AND MORE DETAILED UPDATE GIVEN HE WAS REQUESTING.
[2016-11-04] VITALS (81 sets, daily range): BP systolic 62–144; BP diastolic 40–85
--- NOTE | 2016-11-04 01:00 | NUR ---
PT RESTING QUIETLY. RESP DEPENDENT ON VENT AT 16. EYES CLOSED
--- NOTE | 2016-11-04 02:00 | NUR ---
COMPLETE BATH GIVEN WITH ALL LINENS CHANGED. RIGHT SC CVL DRESSING CHANGED DATED AND LABELED. SHIFT REASSESSMENT COMPLETED NO SIGNIFICANT CHANGES.
--- NOTE | 2016-11-04 03:00 | NUR ---
SHIFT ASSESSMENT PER FLOWSHEET. LABS REVIEWED WITH RT.
--- NOTE | 2016-11-04 03:47 | NUR ---
BLOOD DRAWN FROM CVL AND SENT TO LAB FOR ANALYSIS
[2016-11-04 04:14] LABS: BASOPHILS 1.2 % (0-2); HEMATOCRIT 34.7 % (42.0-54.0); HEMOGLOBIN 11.2 g/dL (13.5-17.5); IMMATURE GRANULOCYTES 14.5 % (0-5); LYMPHOCYTES 13.7 % (15-50); MCH 30.9 pg (26.0-34.0); MCHC 32.3 g/dL (31.0-37.0); MCV 95.6 fL (80.0-100.0); MEAN PLATELET VOLUME 8.7 fL (7.4-10.4); MONOCYTES 7.8 % (2-11); NEUTROPHILS 59.8 % (40-80); PLATELET COUNT 255 10x3/uL (130-400); RBC 3.63 10x6/uL (4.20-6.10); RDW 14.8 % (11.5-14.5); WBC 14.5 10x3/uL (4.8-10.8)
[2016-11-04 04:45] LABS: ALBUMIN 1.6 g/dL (3.4-5.0); ALKALINE PHOSPHATASE 94 U/L (46-116); BILIRUBIN - TOTAL 0.29 mg/dL (0.2-1.3); CALCIUM 8.9 mg/dL (8.5-10.1); CARBON DIOXIDE 21.1 mmol/L (21.0-32.0); CHLORIDE - SERUM 112 mmol/L (98-107); CREATININE - SERUM 0.8 mg/dL (0.6-1.3); GLUCOSE 179 mg/dL (74-106); PROTEIN - SERUM 6.3 g/dL (6.4-8.2); SODIUM 145 mmol/L (136-145); eGFR NON AFRICAN AMERICAN > 90 mL/min (90-120)
[2016-11-04 04:46] LABS: ALT (SGPT) 6 U/L (10-68); CALC OSMOLALITY 292 mosm/kg (275-300); MAGNESIUM - SERUM 1.8 mg/dL (1.8-2.4); POTASSIUM - SERUM 3.5 mmol/L (3.5-5.1); UREA NITROGEN 13 mg/dL (7-18)
--- NOTE | 2016-11-04 04:47 | NUR ---
STEPHANIE LARSENWEFanny.
--- NOTE | 2016-11-04 07:00 | NUR ---
REC'D REPORT AND RESUMED CARE, ETT TO VENTILATION AND SECURED, FIO2 40%, SAT 98%, EYES OPEN, DOEST NOT TRACK OR FOLLOW COMMANDS, PRESSORS AND SEDATION IN USE, VSS, G TUBE WITH PULMOCARE AT 45 CC/HR, RESIDUAL CHECK 20 CC, MCQUEEN TO GRAVITY WITH STRAW COLORED DRAINAGE TO BAG, SCD'S B/L, ASSESSMENT COMPLETE PER FLOWSHEET, REPOSITIONED TO LEFT SIDE WITH PILLOW PROPPED TO BACK WITH HEELS FLOATED
--- NOTE | 2016-11-04 10:01 | NUR ---
SEDATION OFF PER DR WALKER
--- NOTE | 2016-11-04 10:08 | NUR ---
VENT SETTING CHANGE TO RATE OF 10 IN SIMV MODE
--- NOTE | 2016-11-04 12:14 | NUR ---
LASIX 40 MG IVP GIVEN PER ORDER, DR. REIS AT BEDSIDE, NO NEW ORDERS AT THIS TIME
--- NOTE | 2016-11-04 12:52 | NUR ---
VENT ALARMING, COUGHING, RT TO BEDSIDE, SUCTION AND ORAL CARE COMPLETED
--- NOTE | 2016-11-04 15:00 | NUR ---
ASSESSMENT COMPLETE, CONTINUES TO BE ON VENT IN SIMV MODE RATE OF 4, VSS, SEDATION OFF, DOPAMINE AT 10 MCG, REPOSITIONED TO RIGHT SIDE WITH PILLOW PROPPED TO BACK AND HEELS FLOATED
--- NOTE | 2016-11-04 17:15 | NUR ---
RT TO BEDSIDE, CHANGED TO RATE OF I4, SEDATION PROPOFAL ON AT 30 MCG, ORAL CARE AND SUCTION COMPLETED
--- NOTE | 2016-11-04 19:00 | NUR ---
REPORT RECIEVED, SHIFT ASSESSMENT COMPLETE, PT IS SEDATED ON VENT, ON 40% FIO2 WITH 98% O2 SAT. CRACKLES/RHONCHI HEARD IN B/L UPPER LOBES, DIMINISHED IN B/L LOWER LOBES, S1S2, CM-NSR, PATENT RIGHT SC CVL...SEE FLOW SHEET, ABDOMEN IS SOFT AND ROUNT WITH ACTIVE BS, PATENT PEG TUBE WITH PULMOCARE INFUSING VIA PUMP, PATENT F/C WITH C/Y UOP, EDEMA NOTED IN ALL EXTREMETIES, ALL PPP, WILL CON'T TO MONITOR
--- NOTE | 2016-11-04 21:33 | NUR ---
NO VISITORS AT THIS TIME, REPOSITIONED FOR COMFORT, WILL CON'T TO MONITOR
--- NOTE | 2016-11-04 23:00 | NUR ---
REASSESSMENT COMPLETE, NO CHANGES NOTED, PT REPOSITIONED FOR COMFORT, ORAL CARE PROVIDED,
[2016-11-05] VITALS (56 sets, daily range): BP systolic 57–135; BP diastolic 39–92
--- NOTE | 2016-11-05 01:00 | NUR ---
REPOSITIONED FOR COMFORT, ORAL CARE PROVIDED
--- NOTE | 2016-11-05 03:00 | NUR ---
REPOSITIONED FOR COMFORT, ORAL CARE PROVIDED,
[2016-11-05 03:44] LABS: BASOPHILS 0.9 % (0-2); EOSINOPHILS 2.6 % (0-7); HEMATOCRIT 32.5 % (42.0-54.0); HEMOGLOBIN 10.9 g/dL (13.5-17.5); LYMPHOCYTES 16.6 % (15-50); MCH 32.2 pg (26.0-34.0); MCHC 33.5 g/dL (31.0-37.0); MCV 96.2 fL (80.0-100.0); MEAN PLATELET VOLUME 8.5 fL (7.4-10.4); MONOCYTES 6.3 % (2-11); NEUTROPHILS 62.6 % (40-80); PLATELET COUNT 245 10x3/uL (130-400); RBC 3.38 10x6/uL (4.20-6.10); RDW 14.9 % (11.5-14.5); WBC 15.9 10x3/uL (4.8-10.8)
[2016-11-05 04:01] LABS: ALBUMIN 1.6 g/dL (3.4-5.0); ALKALINE PHOSPHATASE 96 U/L (46-116); ALT (SGPT) 6 U/L (10-68); BILIRUBIN - TOTAL 0.26 mg/dL (0.2-1.3); CALCIUM 8.6 mg/dL (8.5-10.1); CARBON DIOXIDE 24.7 mmol/L (21.0-32.0); CHLORIDE - SERUM 109 mmol/L (98-107); CREATININE - SERUM 0.8 mg/dL (0.6-1.3); GLUCOSE 176 mg/dL (74-106); MAGNESIUM - SERUM 1.5 mg/dL (1.8-2.4); POTASSIUM - SERUM 3.5 mmol/L (3.5-5.1); PROTEIN - SERUM 6.3 g/dL (6.4-8.2); SODIUM 141 mmol/L (136-145); eGFR NON AFRICAN AMERICAN > 90 mL/min (90-120)
[2016-11-05 04:06] LABS: CALC OSMOLALITY 286 mosm/kg (275-300); UREA NITROGEN 17 mg/dL (7-18)
--- NOTE | 2016-11-05 05:15 | NUR ---
REPOSITIONED FOR COMFORT, ORAL CARE PROVIDED,
--- NOTE | 2016-11-05 10:31 | NUR ---
Nutrition Follow Up: Pt remains sedated and intubated. Per MD note pt to try and wean from vent today. Pt is tolerating TF of Pulmocare @ 45 ml/hr (goal rate) with H2O flushes of 100 ml every 4 hours. I<O. Wt loss noted. +BM 11/04/16. Labs reviewed - Glucose elevated. Meds noted including Dopamine, Diprivan @ 14.8 ml/hr providing 391 kcal. Pt is receiving 2011 kcal (TF + Diprivan) (25 kcal/kg body wt), 67 g protein (0.8 g/kg body wt) per day. Rec continue current TF, water flush regimen. Will adjust TF rate as needed. RD following.
--- NOTE | 2016-11-05 19:00 | NUR ---
REPORT RECIEVED, SHIFT ASSESSMENT COMPLETE, PT IS SEDATED ON VENT, OPENS EYES, NOT FOLLOWING COMMANDS, ON 40% FIO2 WITH 98% O2 SAT. CRACKLES HEARD IN B/L UPPER LOBES, DIMINISHED IN B/L LOWER LOBES, S1S2, CM-NSR, PATENT RIGHT SC CVL....SEE FLOW SHEET...ABDOMEN IS SOFT AND ROUND WITH ACTIVE BS, PATENT PEG TUBE WITH PULMOCARE INFUSING VIA PUMP, PATENT F/C WITH YELLOW UOP, EDEMA NOTED IN ALL EXTREMETIES, ALL PPP, VSS, WILL CON'T TO MONITOR
--- NOTE | 2016-11-05 21:00 | NUR ---
NO VISITORS AT THIS TIME, REPOSITIONED FOR COMFORT, WILL CON'T TO MONITOR
--- NOTE | 2016-11-05 23:00 | NUR ---
REASSESSMENT COMPLETE, NO CHANGES NOTED, PT RESTING AT THIS TIME, REPOSITIONED FOR COMFORT, ORAL CARE PROVIDED,
[2016-11-06] VITALS (40 sets, daily range): BP systolic 85–144; BP diastolic 57–98
--- NOTE | 2016-11-06 01:00 | NUR ---
COMPLETE BATH AND LINEN CHANGE,
--- NOTE | 2016-11-06 03:10 | NUR ---
REASSESSMENT COMPLETE, NO CHANGES NOTED, PT REPOSITIONED FOR COMFORT, ORAL CARE PROVIDED, WILL CON'T TO MONITOR
[2016-11-06 04:09] LABS: BASOPHILS 0.7 % (0-2); EOSINOPHILS 2.4 % (0-7); HEMATOCRIT 33.1 % (42.0-54.0); HEMOGLOBIN 10.7 g/dL (13.5-17.5); IMMATURE GRANULOCYTES 8.6 % (0-5); LYMPHOCYTES 17.9 % (15-50); MCH 30.9 pg (26.0-34.0); MCHC 32.3 g/dL (31.0-37.0); MCV 95.7 fL (80.0-100.0); MEAN PLATELET VOLUME 8.6 fL (7.4-10.4); MONOCYTES 7.9 % (2-11); NEUTROPHILS 62.5 % (40-80); PLATELET COUNT 291 10x3/uL (130-400); RBC 3.46 10x6/uL (4.20-6.10); RDW 14.6 % (11.5-14.5)
[2016-11-06 04:40] LABS: ALBUMIN 1.7 g/dL (3.4-5.0); ALKALINE PHOSPHATASE 69 U/L (46-116); ALT (SGPT) 7 U/L (10-68); BILIRUBIN - TOTAL 0.35 mg/dL (0.2-1.3); CALC OSMOLALITY 283 mosm/kg (275-300); CALCIUM 8.7 mg/dL (8.5-10.1); CARBON DIOXIDE 24.6 mmol/L (21.0-32.0); CHLORIDE - SERUM 109 mmol/L (98-107); CREATININE - SERUM 0.7 mg/dL (0.6-1.3); GLUCOSE 142 mg/dL (74-106); MAGNESIUM - SERUM 1.8 mg/dL (1.8-2.4); PHOSPHOROUS 2.7 mg/dL (2.5-4.9); POTASSIUM - SERUM 3.6 mmol/L (3.5-5.1); PROTEIN - SERUM 6.7 g/dL (6.4-8.2); SODIUM 141 mmol/L (136-145); UREA NITROGEN 16 mg/dL (7-18); eGFR NON AFRICAN AMERICAN > 90 mL/min (90-120)
--- NOTE | 2016-11-06 08:39 | NUR ---
0800 AM ASSESMENT IS COMPLETE SEE FLOW SHEET FOR FINDINGINS.. PT IS SEDATED AND ORALLY INTUBTED ON VENT.. DOPAMMINE INFUSING FOR BP... CONTACT ISO IN EFFECT.. 0900 WITHOUT VISITORS AT [facility] TIME..
--- NOTE | 2016-11-06 13:31 | NUR ---
1100 WITHOUT CHNAGES.. 1200 DR GALARZA IN TO SEE PT .. WITHOUT VISITORS AT [facility] TIME..
--- NOTE | 2016-11-06 16:17 | NUR ---
1500 WITHOUT VISITORS AT THIS TIME.. 1600 I AND O DONE .. PT REMAINS WITHOUT CHANGES AT THIS TIME
--- NOTE | 2016-11-06 19:00 | NUR ---
Assessment complete. See flowsheet. Pt sedated to eve 2-3 propofol sedation infusing @ 40mcg/kg/min (19.7cc/hr). Pt opens eyes to verbal stimulation; pupils size 3 bilaterally ERRL. Pt does not withdraw to stimulation. Generalized edema noted to all extremities. Pt orally intubated with 8.0FR OET tube secure 22cm @ lip set SIMV Rate 14 TV 600 FiO2 @ 30% PEEP 5 PS 15. Lung sounds present coarse crackles to all gabriel. Pt OET inline suctioned with strong, productive cough triggered and frothy, white sputum retrieved. HR SR with occasional PVCs noted. S1S2 auscultated. All peripheral pulses +2 with capillary refill <3 seconds. Pt right TLSC CVL site CDI; no s/s infection with Dopamine infusing @ 10mcg/kg/min (19.7) and NS @ 100cc/hr with propofol sedation infusing. PEG tube secure to TF Pulmocare infusing @ 40cc/hr (goal rate) with 25cc/hr water flushes per order. BS hypoactive to all quadrants. Shrestha catheter secure retrieving concentrated, yellow urine. Right hassan dressing secure. Bilat bruising noted to shins. SCDs off and replaced. Left heel wound dry with no exudate. Heel pad in place. Pt pulled up in bed and positioned to left side. HOB @ 30 degrees. Arms and heels bridged. Bilat soft wrist restraints resecured. Linens clean/dry. Temp 98.0F. CPOC.
--- NOTE | 2016-11-06 21:00 | NUR ---
Pt repositioned to right side with HOB @ 30 degrees. Oral care completed with mouth moisturizer applied. VSS. NO s/s pain or distress. Bilat soft wrist restraints resecured. CPOC.
--- NOTE | 2016-11-06 23:00 | NUR ---
Reassessment complete. See flowsheet. Pt remains sedated with Propofol sedation infusing @ 40mcg/kg/min. No neuro changes to note. OET tube remains secure to vent with no setting changes to note. Lung sounds continue to present coarse crackles to all gabriel. Pt OET inline suctioned with thin, frothy white sputum retrieved. HR remains SR with occasional PVCs noted. S1S2 auscultated. All peripheral pulses +2 with capillary refill <3 seconds. CVL site CDI with no IVF changes to note. Generalized edema persists. PEG tube remains secure to TF with no setting changes to note. BS remain hypoactive to all quadrants. Shrestha catheter remains secure retrieving concentrated, yellow urine. SCDs secure. Pt pulled up in bed and repositioned to back with HOB @ 30 degrees. Arms and heels rebridged. Bilat soft wrist restraints resecured. No s/s pain or distress. CPOC.
[2016-11-07] VITALS (96 sets, daily range): BP systolic 84–161; BP diastolic 27–90
--- NOTE | 2016-11-07 01:00 | NUR ---
Pt repositioned to left side. HOB @ 30 degrees. Oral care completed with mouth moisturizer applied.
--- NOTE | 2016-11-07 03:00 | NUR ---
Reassessment complete. See flowsheet. Pt remains sedated with Propofol sedation infusing @ 40mcg/kg/min. No neuro changes to note. OET tube remains secure to vent with no setting changes to note. Lung sounds continue to present coarse crackles to all gabriel. Pt OET inline suctioned with thin, frothy white sputum retrieved. HR remains SR with occasional PVCs noted. S1S2 auscultated. All peripheral pulses +2 with capillary refill <3 seconds. CVL site CDI with no IVF changes to note. Generalized edema persists. PEG tube remains secure to TF with no setting changes to note. BS remain hypoactive to all quadrants. Shrestha catheter remains secure retrieving concentrated, yellow urine. SCDs secure. Pt pulled up in bed and repositioned to back with HOB @ 30 degrees for am CXR. Arms and heels bridged. Bilat soft wrist restraints resecured. NO s/s pain or distress. CPOC.
[2016-11-07 04:06] LABS: BASOPHILS 0.3 % (0-2); EOSINOPHILS 3.6 % (0-7); HEMOGLOBIN 10.7 g/dL (13.5-17.5); IMMATURE GRANULOCYTES 5.1 % (0-5); LYMPHOCYTES 15.4 % (15-50); MCH 30.7 pg (26.0-34.0); MCHC 32.4 g/dL (31.0-37.0); MCV 94.8 fL (80.0-100.0); MEAN PLATELET VOLUME 8.6 fL (7.4-10.4); MONOCYTES 9.8 % (2-11); NEUTROPHILS 65.8 % (40-80); PLATELET COUNT 259 10x3/uL (130-400); RBC 3.48 10x6/uL (4.20-6.10); RDW 14.3 % (11.5-14.5)
[2016-11-07 04:12] LABS: WBC 11.7 10x3/uL (4.8-10.8)
[2016-11-07 04:23] LABS: ALBUMIN 1.9 g/dL (3.4-5.0); ALKALINE PHOSPHATASE 97 U/L (46-116); BILIRUBIN - TOTAL 0.24 mg/dL (0.2-1.3); CALC OSMOLALITY 281 mosm/kg (275-300); CALCIUM 8.8 mg/dL (8.5-10.1); CARBON DIOXIDE 25.7 mmol/L (21.0-32.0); CHLORIDE - SERUM 108 mmol/L (98-107); CREATININE - SERUM 0.6 mg/dL (0.6-1.3); GLUCOSE 157 mg/dL (74-106); MAGNESIUM - SERUM 1.6 mg/dL (1.8-2.4); PHOSPHOROUS 2.7 mg/dL (2.5-4.9); POTASSIUM - SERUM 3.5 mmol/L (3.5-5.1); PROTEIN - SERUM 6.8 g/dL (6.4-8.2); SODIUM 139 mmol/L (136-145); UREA NITROGEN 15 mg/dL (7-18); eGFR NON AFRICAN AMERICAN > 90 mL/min (90-120)
[2016-11-07 04:27] LABS: ALT (SGPT) 9 U/L (10-68)
--- NOTE | 2016-11-07 05:00 | NUR ---
Pt repositioned to right side. HOB @ 30 degrees. Oral care completed with mouth moisturizer applied.
--- NOTE | 2016-11-07 16:05 | NUR ---
WEANING DOPAMINE GTT BLOOD PRESSURE TOLERATES ITS. CURRENTLY AT 8 MCG/KG/MIN; WEANING DIPIRIVAN CURRENTLY AT 27 MCG/KG/MIN. OPEN EYES GOOD COUGH REFLEX GRIMACES TO PAIN. DOES NOT OBEY COMMANDS. A BIT RESISTANT WHEN TURNED OR MOVED.
--- NOTE | 2016-11-07 17:49 | NUR ---
BILATERAL LUNGS SOUNDS EQUAL AND CONGESTED BUT CLEARER NOW THAN AT BEGINING OF SHIFT. OPEN EYES EASILY MOVES TONGUE BACK AND FORTH, BUT DOES NOT OBEY ANY COMMANDS. NO VENT CHANGES. GOOD COUGH REFLEX WITH LARGE AMOUNT OF CLEAR AND WHITE SECRETIONS FROM MOUTH AND ETT. SUCTION FREQ. ABD SOFT WITH HYPOACTIVE BOWEL SOUNDS. peg SITE WITH DRESSING DRY AND INTACT INFUSING WITH PULMOCARE AT 45ML HOUR. RIGHT SUBCLAVIAN HAS TRIPLE LUMEN. cvp FLUSHED AND ZEROED GOOD WAVE FORM. LAST READING 14. MONITOR SR WITH FREQ PVC THIS AFTERNOON. NS INCREASED TO 150 ML HOUR. UNTIL CVP REACHES 15 THEN DECREASE TO 75 ML HOUR. MCQUEEN CATH PATENT WITH LARGE AMOUNT OF OUTPUT. CLEAR PALE YELLOW. SCD ON LOWER LEGS WORKING PROPERLY. WEANING DIPIRIVAN AT 27 MCG/KG/MIN. DOPAMINE AT 7 MCG/KG/MIN. NEEDS GREAT ENCOURAGEMENT TO GET HIM TO MOVE FEET TO PAINFUL STIMULI. MOVES ARMS EASIER. HANDS SWOLLEN. HAS POSTERIOR TIBIA EDEMA IN LEGS. 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
--- NOTE | 2016-11-07 19:00 | NUR ---
Assessment complete. See flowsheet. Pt eyes open upon entrance into room with VSS. Pupils size 3 bilaterally ERRL. Pt does not track with eyes or attempt to follow commands to move extremities. Pt withdraws extremities x4 to stimulation with 2/5 strength. Generalized edema noted to all extremities. Pt orally intubated with 8.0FR OET tube secure 22cm @ lip to vent set SIMV Rate 14 FiO2 600 FiO2 @ 30% PEEP 5 PS 15. Lung sounds present coarse crackles to all gabriel. Pt OET inline suctioned per Malou RT with thick, white sputum retrieved and strong, productive cough triggered. HR SR with PVCs. S1S2 auscultated. All peripheral pulses +1 with capillary refill <3 seconds. Left TLSC CVL site CDI; no s/s infection with NS infusing @ 100cc/hr and increased to 150cc/hr per order. CVP zeroed and balanced reading 8 currently. Dopamine infusing @ 7mcg/kg/min with Propofol sedation infusing @ 27mcg/kg/min. Abdomen soft and obese with BS present to all quadrants. PEG tube secure to Pulmocare TF infusing @ 45cc/hr. Shrestha catheter secure and retrieving clear/yellow urine. SCDs secure. Linens clean and dry. Oral care completed per Malou RT. Pt pulled up in bed and positioned to left side with HOB @ 30 degrees. Arms and heels bridged. Bilat soft wrist restraints secure. Temp 98.4F. NO s/s pain or distress. CPOC.
--- NOTE | 2016-11-07 21:00 | NUR ---
Pt repositioned to right side. HOB @ 30 degrees. Oral care completed with mouth moisturizer applied. VSS. NO s/s pain or distress. CPOC.
--- NOTE | 2016-11-07 23:00 | NUR ---
Reassessment complete. See flowsheet. Pt remains sedated to eve 2-3 with Propofol sedation infusing @ 27mcg/kg/min and decreased to 23mcg/kg/min to obtain eve 3-4. Dopamine gtt decreased to 6mcg/kg/min to obtain SBP > 90mmHg. NO neuro changes to note. OET tube remains secure to vent with no setting changes to note. Lung sounds present crackles to all gabriel. Pt OET inline suctioned with thick, frothy white sputum retrieved and strong, productive cough triggered. Oral care completed. HR remains SR with occasional PVCs. S1S2 auscultated. All peripheral pulses +1 with capillary refill <3 seconds. CVL site remains CDI; no s/s infection. Abdomen soft/obese with BS present to all quadrants. PEG tube remains secure to TF Pulmocare infusing @ 45cc/hr. Shrestha catheter remains secure retrieving clear/yellow urine. Pt repositioned to back with HOB @ 30 degrees. Arms and heels bridged. VSS. NO s/s pain or distress.Bilat soft wrist restraints secured. CPOC.
[2016-11-08] VITALS (94 sets, daily range): BP systolic 81–148; BP diastolic 43–623
--- NOTE | 2016-11-08 01:00 | NUR ---
Pt repositioned to left side. Oral care completed per Malou SINCLAIR VSS. Levophed gtt rate weaned to 5mcg/kg/min. Propofol sedation decreased to 20mcg/kg/min. Arms and heels remain bridged. Tube feeding set change completed. CPOC.
--- NOTE | 2016-11-08 03:00 | NUR ---
Reassessment complete. See flowsheet. Pt remains sedated to eve 2-3 with Propofol sedation infusing @ 20 mcg/kg/min and Dopamine @ 5mcg/kg/min NO neuro changes to note. OET tube remains secure to vent with no setting changes to note. Lung sounds present crackles to all gabriel. Pt OET inline suctioned with thick, frothy white sputum retrieved and strong, productive cough triggered. Oral care completed. HR remains SR with occasional PVCs. S1S2 auscultated. All peripheral pulses +1 with capillary refill <3 seconds. CVL site remains CDI; no s/s infection. Abdomen soft/obese with BS present to all quadrants. PEG tube remains secure to TF Pulmocare infusing @ 45cc/hr. Shrestha catheter remains secure retrieving clear/yellow urine. Pt repositioned to back with HOB @ 30 degrees for AM CXR. Diprovan IV tubing change completed. Arms and heels bridged. VSS. NO s/s pain or distress. Bilat soft wrist restraints secured. CPOC.
[2016-11-08 04:08] LABS: BASOPHILS 0.3 % (0-2); EOSINOPHILS 3.4 % (0-7); HEMATOCRIT 30.8 % (42.0-54.0); HEMOGLOBIN 9.8 g/dL (13.5-17.5); IMMATURE GRANULOCYTES 2.4 % (0-5); LYMPHOCYTES 14.9 % (15-50); MCH 30.3 pg (26.0-34.0); MCHC 31.8 g/dL (31.0-37.0); MCV 95.4 fL (80.0-100.0); MEAN PLATELET VOLUME 8.6 fL (7.4-10.4); MONOCYTES 6.4 % (2-11); NEUTROPHILS 72.6 % (40-80); PLATELET COUNT 257 10x3/uL (130-400); RBC 3.23 10x6/uL (4.20-6.10); RDW 14.1 % (11.5-14.5); WBC 12.1 10x3/uL (4.8-10.8)
[2016-11-08 04:23] LABS: ALBUMIN 2.1 g/dL (3.4-5.0); ALKALINE PHOSPHATASE 91 U/L (46-116); ALT (SGPT) 13 U/L (10-68); BILIRUBIN - TOTAL 0.23 mg/dL (0.2-1.3); CALC OSMOLALITY 277 mosm/kg (275-300); CALCIUM 9.1 mg/dL (8.5-10.1); CARBON DIOXIDE 24.3 mmol/L (21.0-32.0); CHLORIDE - SERUM 105 mmol/L (98-107); CREATININE - SERUM 0.6 mg/dL (0.6-1.3); GLUCOSE 145 mg/dL (74-106); MAGNESIUM - SERUM 1.8 mg/dL (1.8-2.4); POTASSIUM - SERUM 4.1 mmol/L (3.5-5.1); PROTEIN - SERUM 6.6 g/dL (6.4-8.2); SODIUM 137 mmol/L (136-145); UREA NITROGEN 16 mg/dL (7-18); eGFR NON AFRICAN AMERICAN > 90 mL/min (90-120)
--- NOTE | 2016-11-08 05:00 | NUR ---
Pt repositioned to right side. HOB @ 30 degrees. Oral care completed with mouth moisturizer applied.
--- NOTE | 2016-11-08 05:53 | NUR ---
Sedation turned off per order
--- NOTE | 2016-11-08 06:36 | NUR ---
Dopamine gtt rate decreased to 3mcg/kg/min for SBP 140s after sedation turned off.
--- NOTE | 2016-11-08 08:13 | NUR ---
JHONY'S SEDATION WAS TURNED OFF AT 0600 BY NURSING STAFF FOR WEANING TRIALS, HOWEVER I DO NOT HAVE ORDERS FOR A WEANIG TRIAL. THE PATIENT WAS FIGHTING THE VENTILATOR AND THE NURSE TURNED THE SEDATION BACK ON AT APPROX. 0745.
--- NOTE | 2016-11-08 10:07 | NUR ---
PATIENT AWAKE AND MOVING ALL EXTREMITIES BUT DOES NOT OBEY COMMANDS BUT WILL SHAKE HIS HEAD NO WHEN ASKED TO DO ANYTHING. GRIMACE TO PAINFUL STIMULI ON EXTREMITIES TO GET HIM TO MOVE. TONGUE HANGING OUT OF MOUTH MOVES TONGUE IN AND OUT. SKIN WARM AND DRY. BILATERAL LUNG SOUNDS EQUAL AND CONGESTED. LARGE AMOUNT OF CLEAR SECRETIONS ORALLY AND PER ETT. NEEDS FREQ SUCTION. RIGHT SUBCLAVAIN TRIPLE LUMEN CENTRAL LINE INFUSING WITH NS AT 150 ML HOUR AND DOPAMINE GTT DECREASED TO 2 MCG/KG/MIN. RESUMED DIPRIVAN AT 5MCG/KG/MIN UNTIL CPAP TRIALS STARTED TO STOP PATIENT GAGGING ON ETT. MEDS EFFECTIVE. PATIENT RESTING COMFORTABLY. MONTIOR SR WITH FREQ PVC. PEG INTACT RESTARTED TUBE FEEDING PULMOCARE AT 45 ML HOURS. ABD SOFT WITH BOWEL SOUNDS PRESENT X 4. SCD ON LOWER LEGS WORKING PROPERLY. MCQUEEN CATH PATENT DRAINING CLOUDY YELLOW URINE.
--- NOTE | 2016-11-08 12:38 | NUR ---
DIPRIVAN INCREASED TO 10 MCG/KG/MIN DUE TO AGITATION COUGHING AGAINST THE VENT. SUCTION COPIOUS AMOUNTS OF CLEAR THICK SECRETION FROM MOUTH AND ETT. MEDS EFFECTIVE PATIENT RESTING BETTER
--- NOTE | 2016-11-08 12:39 | NUR ---
1145 DOPAMINE TURNED OFF
--- NOTE | 2016-11-08 19:00 | NUR ---
Assessment complete. See flowsheet. Pt eyes open upon entrance into room with VSS. Pupils size 3 bilaterally ERRL. Pt does not track with eyes or attempt to follow commands to move extremities. Pt withdraws extremities x4 to stimulation with 2/5 strength. Generalized edema noted to all extremities. Pt orally intubated with 8.0FR OET tube secure 22cm @ lip to vent set SIMV Rate 8 FiO2 600 FiO2 @ 30% PEEP 5 PS 15. Lung sounds present fine crackles to all gabriel. Pt OET inline suctioned three times with thick, white sputum retrieved and strong, productive cough triggered. HR SR with PVCs. S1S2 auscultated. All peripheral pulses +1 with capillary refill <3 seconds. Right TLSC CVL site CDI; no s/s infection with NS infusing @ 150cc/hr. Dopamine @ 6mcg/kg/min with Propofol sedation infusing @ 30 mcg/kg/min and increased to 35mcg/kg/min for pt awake and coughing vigorously. Abdomen soft and obese with BS present to all quadrants. PEG tube secure to [facility] TF infusing @ 45cc/hr. Shrestha catheter secure and retrieving clear/yellow urine. SCDs secure. Oral care completed with mouth moisturizer applied. Pt incontinent of large, soft brown BM approx 400cc. Chlorhexidine bed bath with gown and linen changes completed. Pt pulled up in bed and positioned to left side with HOB @ 30 degrees. Arms and heels bridged. Bilat soft wrist restraints secured. Temp 97.6F orally. No s/s pain or distress. CPOC.
--- NOTE | 2016-11-08 21:00 | NUR ---
Pt repositioned to right side. HOB @ 30 degrees. Arms and heels rebridged. Pt suctioned of copius thin, frothy secretions via OGT and clear/thick sputum via oral cavity. Productive cough triggered. Oral care completed. VSS. NO IVF changes to note. CPOC.
--- NOTE | 2016-11-08 23:00 | NUR ---
Reassessment complete. See flowsheet. Pt awake and coughing and gagging. Oral care and suctioning completed. OET suctioning completed with frothy thin sputum retrieved. Fentanyl sedation rate increased to 40mcg/kg/min to obtain eve 3. OET tube remains secure to vent with no setting changes to note. Lung sounds continue to present crackles to all gabriel. HR ST 110BPM with S1S2 auscultated. All peripheral pulses remain +1 with capillary refill <3 seconds. CVL site CDI with Dopamine infusing @ 6mcg/kg/min, propofol @ 40mcg/kg/min and NS @ 150cc/hr. Abdomen soft with BS present to all quadrants. PEG tube secure to TF Pulmocare infusing @ 45cc/hr. Shrestha remains secure retrieving clear/yellow urine. Pt pulled up in bed and positioned to back with HOB @ 30 degrees. Arms and heels bridged. Bilat soft wrist restraints secured. NO s/s pain or distress. Linens clean/dry. CPOC.
[2016-11-09] VITALS (51 sets, daily range): BP systolic 87–1236; BP diastolic 49–99
--- NOTE | 2016-11-09 01:00 | NUR ---
Pt repositioned to left side. HOB @ 30 degrees. Oral care completed with mouth moisturizer applied. No s/s pain or distress. CPOC.
--- NOTE | 2016-11-09 03:00 | NUR ---
Reassessment complete. See flowsheet. Pt awakened for OET suctioning. OET inlins suctioning completed with frothy thin sputum retrieved. Propofol sedation continues to infuse @ 40mcg/kg/min to maintain current eve 3. OET tube remains secure to vent with no setting changes to note. Lung sounds continue to present crackles to all gabriel. HR SR 90BPM with S1S2 auscultated. All peripheral pulses remain +1 with capillary refill <3 seconds. CVL site CDI with Dopamine infusing @ 6mcg/kg/min, propofol @ 40mcg/kg/min and NS @ 150cc/hr. Abdomen soft with BS present to all quadrants. PEG tube secure to TF Pulmocare infusing @ 45cc/hr. Shrestha remains secure retrieving clear/yellow urine. Pt pulled up in bed and positioned to back with HOB @ 30 degrees for AM CXR. Arms and heels bridged. Bilat soft wrist restraints secured. NO s/s pain or distress. Linens clean/dry. CPOC.
--- NOTE | 2016-11-09 05:00 | NUR ---
Pt repositioned to left side. HOB @ 30 degrees. Oral care completed. VSS. NO s/s pain or distress. Bilat soft wrist restraints secure. CPOC.
[2016-11-09 05:23] LABS: HEMATOCRIT 30.4 % (42.0-54.0); HEMOGLOBIN 9.8 g/dL (13.5-17.5); MCH 31.3 pg (26.0-34.0); MCHC 32.2 g/dL (31.0-37.0); MCV 97.1 fL (80.0-100.0); MEAN PLATELET VOLUME 9.1 fL (7.4-10.4); PLATELET COUNT 324 10x3/uL (130-400); RBC 3.13 10x6/uL (4.20-6.10); RDW 14.2 % (11.5-14.5); WBC 20.6 10x3/uL (4.8-10.8)
[2016-11-09 05:39] LABS: CALC OSMOLALITY 281 mosm/kg (275-300); CALCIUM 8.9 mg/dL (8.5-10.1); CARBON DIOXIDE 25.5 mmol/L (21.0-32.0); CHLORIDE - SERUM 109 mmol/L (98-107); CREATININE - SERUM 0.6 mg/dL (0.6-1.3); GLUCOSE 143 mg/dL (74-106); MAGNESIUM - SERUM 1.7 mg/dL (1.8-2.4); PHOSPHOROUS 2.9 mg/dL (2.5-4.9); POTASSIUM - SERUM 3.8 mmol/L (3.5-5.1); SODIUM 140 mmol/L (136-145); UREA NITROGEN 16 mg/dL (7-18); eGFR NON AFRICAN AMERICAN > 90 mL/min (90-120)
--- NOTE | 2016-11-09 06:00 | NUR ---
Sedation turned off for AM weaning trial
[2016-11-09 06:09] LABS: EOSINOPHILS 4 % (0-7); LYMPHOCYTES 5 % (15-50); MONOCYTES 1 % (2-11); NEUTROPHILS 82 % (40-80); PLATELET ESTIMATE NORMAL; PLATELET MORPHOLOGY GIANT PLTS PRESENT
--- NOTE | 2016-11-09 12:39 | NUR ---
NUTRITION MONITORING & EVAL CHART REVIEWED. PT OFF VENT, NO DIET ORDERED OF YET. WILL MONITOR PT PROGRESS, PROVIDE DIET WHEN RESUMED. RD FOLLOWING
--- NOTE | 2016-11-09 18:29 | NUR ---
0800 AM ASSESMENT IS COMPLETE SEE FLOW SHEET FOR FINDINGS.. PT IS ORALLY INTUBATED ABND SEDATED ON VENT AT THIS TIME.. 0840 SEDATION OFF AT THIS TIME FOR CPAP TRIAL PER RT.. 0900 WITHOUT VISITOR.. 1030 DR WALKER IN TO SEE PT AND PT IS EXTUBATED BY RT TO 4 L NC.. SOFT RESTR AINTS REMAIN ON TO PREVENT PT FROM PULLING AT FLINES.. PT IS NOT APPROPRIATE IN RESPONSES. 1200 WIHTOUT VISITOR AT THIS TIME.. 1500 WITHOUT VISITORS.. 1600 INCONTINENT OF STOOL BATH AND LINEN CHANGE DONE 1700 I AND O DONS 1800 WIHTOUT VISITOR..
--- NOTE | 2016-11-09 19:00 | NUR ---
REPORT RECIEVED, SHIFT ASSESSMENT COMPLETE, PT IS CONFUSED LYING IN BED, PT NON-VERBAL, DOESNT FOLLOW COMMANDS, ON 4L NC WITH 97% O2 SAT. CRACKLES HEARD IN B/L UPPER LOBES, DIMINISHED IN B/L LOWER LOBES, S1S2, CM-NSR, PATENT RIGHT SC CVL....SEE FLOW SHEET...ABDOMEN IS SOFT AND ROUND WITH ACTIVE BS, PATENT PEG TUBE WITH PULMOCARE INFUSING VIA PUMP, PATENT F/C WITH C/Y UOP, EDEMA NOTED IN ALL EXTREMETIES, ALL PPP, VSS, WILL CON'T TO MONITOR
--- NOTE | 2016-11-09 21:00 | NUR ---
NO VISITORS AT THIS TIME, REPOSITIONED FOR COMFORT, WILL CON'T TO MONITOR
--- NOTE | 2016-11-09 23:00 | NUR ---
REASSESSMENT COMPLETE, NO CHANGES NOTED, REPOSITIONED FOR COMFORT, WILL CON'T TO MONITOR
[2016-11-10] VITALS (15 sets, daily range): BP systolic 105–139; BP diastolic 47–91
--- NOTE | 2016-11-10 01:05 | NUR ---
REPOSITONED FOR COMFORT, WILL CON'T TO MONITOR
--- NOTE | 2016-11-10 03:05 | NUR ---
REASSESSMENT COMPLETE, NO CHANGES NOTED, PT RESTING AT THIS TIME, NO NEEDS NOTED, WILL CON'T TO MONITOR
--- NOTE | 2016-11-10 03:52 | NUR ---
RESTRAINTS DC'D AT THIS TIME
[2016-11-10 04:25] LABS: BASOPHILS 0.2 % (0-2); EOSINOPHILS 1.4 % (0-7); HEMATOCRIT 29.3 % (42.0-54.0); HEMOGLOBIN 9.3 g/dL (13.5-17.5); IMMATURE GRANULOCYTES 0.6 % (0-5); LYMPHOCYTES 10.2 % (15-50); MCH 30.3 pg (26.0-34.0); MCHC 31.7 g/dL (31.0-37.0); MCV 95.4 fL (80.0-100.0); MEAN PLATELET VOLUME 8.8 fL (7.4-10.4); MONOCYTES 4.8 % (2-11); NEUTROPHILS 82.8 % (40-80); PLATELET COUNT 305 10x3/uL (130-400); RBC 3.07 10x6/uL (4.20-6.10); RDW 13.8 % (11.5-14.5)
[2016-11-10 04:30] LABS: WBC 14.5 10x3/uL (4.8-10.8)
[2016-11-10 04:49] LABS: ALBUMIN 2.6 g/dL (3.4-5.0); ALKALINE PHOSPHATASE 91 U/L (46-116); ALT (SGPT) 10 U/L (10-68); BILIRUBIN - TOTAL 0.26 mg/dL (0.2-1.3); CALC OSMOLALITY 275 mosm/kg (275-300); CALCIUM 8.8 mg/dL (8.5-10.1); CARBON DIOXIDE 28.6 mmol/L (21.0-32.0); CHLORIDE - SERUM 103 mmol/L (98-107); CREATININE - SERUM 0.5 mg/dL (0.6-1.3); GLUCOSE 123 mg/dL (74-106); POTASSIUM - SERUM 3.8 mmol/L (3.5-5.1); PROTEIN - SERUM 6.6 g/dL (6.4-8.2); SODIUM 138 mmol/L (136-145); UREA NITROGEN 11 mg/dL (7-18); eGFR NON AFRICAN AMERICAN > 90 mL/min (90-120)
--- NOTE | 2016-11-10 05:19 | NUR ---
REPOSITIONED FOR COMFORT, WILL CON'T TO MONITOR
--- NOTE | 2016-11-10 13:54 | NUR ---
PT BATHED AND LINENS CHANGED, REPORT CALLED TO FLOOR NURSE.
--- NOTE | 2016-11-10 14:50 | NUR ---
RECEIVED PT TO ROOM 2137, VIA BED, PT ORIENTED TO ROOM AND CALL LIGHT. PT NON VERBAL, CANNOT FOLLOW COMMAND. CALL LIGHT IN REACH, NAD NOTED, WILL CONTINUE TO MONITOR.
--- NOTE | 2016-11-10 14:51 | OP ---
PATIENT NAME: PEYTON YATES MEDICAL RECORD: [id number] :43 LOCATION:D.M2 D.2137 ADMISSION DATE:10/30/16 SURGEON: MAX BONE MD DATE OF OPERATION: 10/30/2016 PREOPERATIVE DIAGNOSES: 1. Sepsis. 2. Respiratory failure. 3. Severe dehydration. 4. Septic shock. POSTOPERATIVE DIAGNOSES: 1. Sepsis. 2. Respiratory failure. 3. Severe dehydration. 4. Septic shock. PROCEDURE: Right subclavian vein triple-lumen central venous line placement. SURGEON: Max Bone MD. REPORT OF PROCEDURE: The patient's right chest was prepped and draped in sterile fashion. A needle was used to cannulate the right subclavian vein. The guidewire was advanced with ease. Over this wire, a dilator was placed followed by the triple-lumen catheter. The catheter aspirated nonpulsatile dark blood and flushed easily in all 3 ports. This was sutured into place with 3-0 silk ties and dressed appropriately. COMPLICATIONS: None. CONDITION: Stable. ANESTHESIA: General endotracheal. BLOOD LOSS: Minimal. Procedure done in the ICU at the bedside. TRANSINT:[id number] Voice Confirmation ID: [id number] DOCUMENT ID: [id number] MAX BONE MD at 1451 CC: [id number] DICTATION DATE: 10/30/16 0803 DIRT SHOVELER: 10/30/16 1109 ADM IN [place] [id number] [place] [address]
--- NOTE | 2016-11-10 22:42 | NUR ---
NURSING ROUNDS 20:00 - PT LYING IN BED, AWAKE, UNABLE TO ANSWER ANY QUESTIONS OR DETERMINE ANY NEEDS. PT DEMONSTRATES UNCONTROLLED MOVEMENT OF HIS TONGUE. CONTINUE TO MONITOR CLOSELY. WILL TURN PT Q 2 HOURS TO PREVENT SKIN BREAKDOWN. BED LOW, CALL LIGHT IN REACH, PT UNABLE TO USE IT, SIDE RAILS X 2, HOB 30 DEGREES.
[2016-11-11] VITALS (19 sets, daily range): BP systolic 87–148; BP diastolic 51–97
--- NOTE | 2016-11-11 04:31 | NUR ---
PT LYING IN BED, AWAKE, ALERT, NONVERBAL, TONGUE MOVING UNCONTROLLABLY. PT DOES LOOK WHEN BEING SPOKEN TO. PT IS IN NO ACUTE DISTRESS. CONTINUE TO MONITOR CLOSELY. BED LOW, PT UNABLE TO USE CALL LIGHT. BED ALARM ON. HOB 30 DEGREES.
--- NOTE | 2016-11-11 07:53 | NUR ---
CALLED MARIAH CARDOSO NP CELL PHONE. NO ANSWER. PAGED MARIAH CARDOSO NP TO INFORM HER OF PTS ABG RESULT (P02 41.2). RECEIVED CALLBACK FROM MARIAH CARDOSO NP TO ORDER STAT CHEST XRAY AND CALL DR. WALKER. WILL DO ORDERED AND CONTINUE TO MONITOR. 0757- PAGED DR. WALKER TO INFORM HIM OF PTS ABG RESULTS. WILL AWAIT CALLBACK AND CONTINUE TO MONITOR.
--- NOTE | 2016-11-11 08:02 | NUR ---
ABGS RESULTED. CRITICAL LAB REVIEWED. CALL DR. WALKER TO NOTIFY. PT IS FULL CODE. SO PER DR. WALKER TELEPHONE ORDER PT BEING TRANSFERED TO ICU R/T RESP FAILURE. FERMENTATION MANAGER NOTIFIED. AWAITING ROOM NUMBER.
--- NOTE | 2016-11-11 08:11 | NUR ---
RECEIVED CALL FROM DR. LOPEZ. DR. WALKER GAVE NEW TELEPHONE ORDERS FOR LASIX INJECTION (40MG IV ONCE) AND TO GO AHEAD AND TRANSFER PT TO ICU. WILL DO ORDERED AND CONTINUE TO MONITOR.
--- NOTE | 2016-11-11 08:50 | NUR ---
PATIENT ARRIVED TO THE FLOOR VIA BED FROM [facility]. PATIENT WAS ON A FLUSH OXYMIZER AND SATS WERE ONLY 86%. WAS TOLD IN REPORT THAT THEY ATTEMPTED TO PUT HIM ON AN NRB AND HE WOULD NOT LEAVE THE MASK ON. PATIENT SOUNDED VERY WET, WAS GURGLING, PATIENT HAD CRACKLES AND RHONCHI IN ALL LUNG BLACKBURN. ASSESSMENT COMPLETED. NG AND OG SUCTION COMPLETED IN ATTEMPTS TO BRING SATS UP, WITHOUT SUCCESS. DID SUCK THICK WHITE SECRETIONS OUT.
--- NOTE | 2016-11-11 09:30 | NUR ---
DR WALKER HERE, HE HAS ORDERED A NRB TO BE PLACED ON THE PATIENT AND THE PATIENT TO BE PLACED IN RESTRAINTS. PATIENT WAS UNABLE TO REMOVE NRB WITH HANDS BUT KEPT MANIPULATING HIS MOUTH TO POP IT OFF. THIS NURSE STOOD AT BEDSIDE AND HELD IN PLACE. SATS UP TO 92% BUT KEPT FALLING INTO THE LOWER 80'S. CONTINUED TO WORK WITH PATIENT. SUCTIONED BY JERILYN WITH RESPIRATORY A COUPLE MORE TIMES.
--- NOTE | 2016-11-11 10:20 | NUR ---
VAPOTHERM APPLIED PER DR GIL ORDERS. 40L OXYGEN AT FIO2 OF 100%. SATS HAVE COME UP TO MID 90'S AND DO FALL AT TIMES INTO UPPER 80'S. WILL MONITOR.
--- NOTE | 2016-11-11 10:30 | NUR ---
NUTRITION MONITORING & EVAL CHART REVIEWED. SPOKE WITH NURSING. PEG TUBE FEEDS CURRENTLY OFF. POSSIBLE TX TO FLOOR LATER TODAY. TO RESUME TUBE FEEDS WHEN APPROPRIATE. RD FOLLOWING
--- NOTE | 2016-11-11 10:37 | NUR ---
AM ROUNDING- RECEIVED REPORT FROM PRODUCT TECHNICIAN NURSE CLAUDIA DALTON. PT IS CURRENTLY LAYING IN BED ON BACK WITH EYES OPEN RESTING. PT IS NON-VERBAL. IN DROPLET ISOLATION FOR MDR PSA. RIGHT CHEST CVL SEEN WITH NS RUNNING AT 50CC/HR. PEG TUBE SEEN TO LEFT UPPER QUADRANT WITH PULMOCARE RUNNING AT 45CC/HR WITH 100CC/HR WATER FLUSHES Q4H. ON "FLUSH" (OVER 15L, HIGHEST 02 WITH PER RESP) VIA OXIMIZER. SWELLING SEEN TO RIGHT LEG. BRUISING SEEN TO LEFT LEG. BILATERAL HEEL PROTECTORS ON. SKIN BREAKDOWN SEEN TO LEFT HEEL AREA. BUTTOCK AREA HAS REDNESS. CRACKLES HEARD TO ALL FOUR LOBES. BOWEL SOUNDS ARE ACTIVE IN ALL FOUR QUADRANTS. ABDOMEN IS DISTENDED. SWELLING SEEN TO BILATERAL HANDS. WILL CONTINUE TO MONITOR.
--- NOTE | 2016-11-11 12:30 | NUR ---
PATIENT IS CALM AT THIS TIME. RESTRAINTS WERE REMOVED. STAYED AT BEDSIDE FOR SOME TIME AND PATIENT MADE NO ATTEMPT TO PULL ON LINES. WILL LEAVE RESTRAINT OFF AND MONITOR.
--- NOTE | 2016-11-11 13:30 | NUR ---
0902- PT TRANSFERRED TO ICU ORDERED BY DR. WALKER.
--- NOTE | 2016-11-11 13:31 | NUR ---
0830- CALLED REPORT AND SPOKE CLAUDIA JOHNSON AND GAVE REPORT.
[2016-11-11 18:52] LABS: ALBUMIN 2.6 g/dL (3.4-5.0); ALKALINE PHOSPHATASE 73 U/L (46-116); ALT (SGPT) 10 U/L (10-68); BILIRUBIN - TOTAL 0.35 mg/dL (0.2-1.3); CALC OSMOLALITY 267 mosm/kg (275-300); CALCIUM 8.6 mg/dL (8.5-10.1); CARBON DIOXIDE 31.5 mmol/L (21.0-32.0); CHLORIDE - SERUM 99 mmol/L (98-107); CREATININE - SERUM 0.6 mg/dL (0.6-1.3); GLUCOSE 117 mg/dL (74-106); MAGNESIUM - SERUM 1.6 mg/dL (1.8-2.4); PHOSPHOROUS 2.7 mg/dL (2.5-4.9); POTASSIUM - SERUM 3.8 mmol/L (3.5-5.1); PROTEIN - SERUM 6.4 g/dL (6.4-8.2); SODIUM 133 mmol/L (136-145); eGFR NON AFRICAN AMERICAN > 90 mL/min (90-120)
[2016-11-11 18:59] LABS: UREA NITROGEN 15 mg/dL (7-18)
--- NOTE | 2016-11-11 20:00 | NUR ---
BLOOD CULTURES DRAWN, PERIPHERAL BY LAB AND CVL FROM DISTAL PORT.
--- NOTE | 2016-11-11 20:27 | NUR ---
INCONT OF MED SOFT BROWN STOOL. KAYLEIGH-CARE, PADS CHANGED. PT REPOSITIONED UP IN BED TO R SIDE. ATTEMPTED ORAL CARE, PT RESISTANT.
--- NOTE | 2016-11-11 22:22 | NUR ---
NO VISITORS. REPOSITIONED UP IN BED TO L SIDE, ROM DONE. EXTR ELEVATED ON PILLOWS.
--- NOTE | 2016-11-11 23:30 | NUR ---
REASSESSMENT PER FLOWSHEET, NO ACUTE CHANGES. VSS.. NO SIGN OF DISTRESS.
[2016-11-12] VITALS (23 sets, daily range): BP systolic 85–124; BP diastolic 50–85
--- NOTE | 2016-11-12 00:47 | NUR ---
PT REPOSITIONED UP IN BED, STARTLES WHENT TOUCHED..STILL NON VERBAL, BUT NO SIGN OF DISTRESS.
--- NOTE | 2016-11-12 02:53 | NUR ---
REASSESSMENT PER FLOWSHEET, NO ACUTE CHANGES.
[2016-11-12 03:43] LABS: BASOPHILS 0.2 % (0-2); EOSINOPHILS 0.2 % (0-7); HEMATOCRIT 31.6 % (42.0-54.0); HEMOGLOBIN 10.2 g/dL (13.5-17.5); IMMATURE GRANULOCYTES 0.5 % (0-5); LYMPHOCYTES 6.1 % (15-50); MCH 30.9 pg (26.0-34.0); MCHC 32.3 g/dL (31.0-37.0); MCV 95.8 fL (80.0-100.0); MEAN PLATELET VOLUME 9.2 fL (7.4-10.4); MONOCYTES 3.1 % (2-11); NEUTROPHILS 89.9 % (40-80); PLATELET COUNT 463 10x3/uL (130-400)
[2016-11-12 04:12] LABS: ALBUMIN 2.5 g/dL (3.4-5.0); ALKALINE PHOSPHATASE 77 U/L (46-116); ALT (SGPT) 11 U/L (10-68); BILIRUBIN - TOTAL 0.31 mg/dL (0.2-1.3); CALC OSMOLALITY 271 mosm/kg (275-300); CALCIUM 9.1 mg/dL (8.5-10.1); CARBON DIOXIDE 29.3 mmol/L (21.0-32.0); CHLORIDE - SERUM 99 mmol/L (98-107); CREATININE - SERUM 0.6 mg/dL (0.6-1.3); GLUCOSE 164 mg/dL (74-106); POTASSIUM - SERUM 3.8 mmol/L (3.5-5.1); SODIUM 133 mmol/L (136-145); UREA NITROGEN 18 mg/dL (7-18); eGFR NON AFRICAN AMERICAN > 90 mL/min (90-120)
--- NOTE | 2016-11-12 06:00 | NUR ---
NO VISITORS. AM LAB RESULTED.
--- NOTE | 2016-11-12 07:00 | NUR ---
PT AWAKE BUT UNABLE TO FOLLOW COMMANDS AND APPEARS DISORIENTED. LOCALIZES PAIN. REMAINS ON VAPOTHERM 40L AT 100% WITH O2 SAT LOW. WILL CONTINUE TO MONITOR RESP STATUS CLOSELY. PT LUNG SOUNDS COURSE/CRACKLES BILAT. JERKING MOVEMENTS NOTED IN MOUTH AND TONGUE, NO CHANGE FROM PREVIOUS ASSESSMENTS. WILL CONTINUE TO MONITOR CLOSELY
--- NOTE | 2016-11-12 09:00 | NUR ---
PT O2 SAT DECREASING TO 78%, RESPIRATORY IN ROOM. ORAL AND OG SUCITON PERFORMED. PULSE OX REPLACED AND PLACED ON LEFT HAND. O2 SAT NOW 90% WITH GOOD WAVEFORM. PT HAD BM, CLEANED AND REPOSITIONED. WILL CONTINUE TO MONITOR
--- NOTE | 2016-11-12 10:11 | NUR ---
NUTRITION MONITORING & EVAL CHART REVIEWED. PT REMAINS IN ISOLATION. TOLERATING PULMOCARE @ 45 CC/HR PER NURSING. RD FOLLOWING
--- NOTE | 2016-11-12 11:00 | NUR ---
SPOKE WITH PHYSICIANS ABOUT PT STATUS. WILL SEND DOCTORS NOTES TO BATTERY CHECKER ABOUT POSSIBLE CHANGE IN CODE STATUS IF APPROVED. WILL CONTINUE TO MONITOR
--- NOTE | 2016-11-12 13:00 | NUR ---
DR SCHWARTZ AND DR WALKER'S PROGRESS NOTES SENT TO FIELD EVIDENCE TECHNICIAN HERB. WAITING FOR UPDATE WITH CASE. NO CHANGES IN PT STATUS FROM PREVIOUS NOTE. WILL CONTINUE TO MONITOR
--- NOTE | 2016-11-12 15:00 | NUR ---
PT ORAL AND OG SUCITONED DUE TO DECREASING O2 SAT. RESPIRATORY NOTIFIED AND AT BEDSIDE. CASE MANAGEMENT CALLED AGAIN FOR UPDATE ON CODE STATUS. WILL CONTINUE TO MONITOR
--- NOTE | 2016-11-12 17:12 | NUR ---
1700 PROGRESS NOTES WITH POC SIGNED BY BOTH DR WALKER AND DR SCHWARTZ AND FAXED PER CASE MANAGEMENT. PT IS NOW DNR, WITNESSED AND IN COMPUTER. WILL WAIT FOR CONFIRMATION ON FURTHER PLACEMENT AND CONTINUE PLAN OF CARE
--- NOTE | 2016-11-12 19:30 | NUR ---
REPORT RECIEVED, SHIFT ASSESSMENT COMPLETE, PT LOCALIZES PAIN, ON 100% VAPOTHERM, WITH 95% O2 SAT. CRACKLES/RHOCHI HEARD IN B/L UPPER LOBES, DIMINISHED IN B/L LOWER LOBES, CM-ST WITH PVC'S, PATENT RIGHT SC CVL WITH NS INFUSING VIA PUMP, ABDOMEN IS SOFT AND ROUND WITH ACTIVE BS, PATENT PEG TUBE WITH PULMOCARE INFUSING VIA PUMP, PATENT F/C WITH CLOUDY UOP, EDEMA NOTED IN ALL EXTREMETIES, ALL PPP, WILL CON'T TO MONITOR
--- NOTE | 2016-11-12 21:00 | NUR ---
NO VISITORS AT THIS TIME, WILL CON'T TO MONITOR
--- NOTE | 2016-11-12 23:00 | NUR ---
COMPLETE BATH AND LINEN CHANGE, PT TOLERATED WELL, VSS, WILL CON'T TO MONITOR
[2016-11-13] VITALS (16 sets, daily range): BP systolic 90–143; BP diastolic 50–83
--- NOTE | 2016-11-13 03:02 | NUR ---
REASSESSMENT COMPLETE, NO CHANGES NOTED, WHITE/YELLOW SPUTUM WITH SUCTION NOTED, REPOSITIONED FOR COMFORT, ORAL CARE PROVIDED,
[2016-11-13 03:53] LABS: BASOPHILS 0.2 % (0-2); EOSINOPHILS 0.1 % (0-7); HEMATOCRIT 29.3 % (42.0-54.0); HEMOGLOBIN 9.4 g/dL (13.5-17.5); IMMATURE GRANULOCYTES 0.4 % (0-5); LYMPHOCYTES 8.7 % (15-50); MCH 30.7 pg (26.0-34.0); MCHC 32.1 g/dL (31.0-37.0); MCV 95.8 fL (80.0-100.0); MEAN PLATELET VOLUME 9.3 fL (7.4-10.4); MONOCYTES 3.6 % (2-11); PLATELET COUNT 440 10x3/uL (130-400); RBC 3.06 10x6/uL (4.20-6.10); RDW 14.3 % (11.5-14.5); WBC 21.5 10x3/uL (4.8-10.8)
[2016-11-13 04:03] LABS: ALBUMIN 2.5 g/dL (3.4-5.0); ALKALINE PHOSPHATASE 84 U/L (46-116); BILIRUBIN - TOTAL 0.43 mg/dL (0.2-1.3); CALC OSMOLALITY 275 mosm/kg (275-300); CARBON DIOXIDE 30.2 mmol/L (21.0-32.0); CHLORIDE - SERUM 99 mmol/L (98-107); CREATININE - SERUM 0.7 mg/dL (0.6-1.3); GLUCOSE 158 mg/dL (74-106); MAGNESIUM - SERUM 1.9 mg/dL (1.8-2.4); POTASSIUM - SERUM 3.8 mmol/L (3.5-5.1); PROTEIN - SERUM 6.9 g/dL (6.4-8.2); SODIUM 135 mmol/L (136-145); UREA NITROGEN 22 mg/dL (7-18); eGFR NON AFRICAN AMERICAN > 90 mL/min (90-120)
[2016-11-13 04:04] LABS: ALT (SGPT) 8 U/L (10-68)
--- NOTE | 2016-11-13 05:15 | NUR ---
REPOSITIONED FOR COMFORT, WILL CON'T TO MONITOR
--- NOTE | 2016-11-13 12:51 | NUR ---
Patient Name: PEYTON YATES Encounter No: [id number] : 1945 Primary Insurance: MEDICARE A & B Anticipated DC Date: Planned Disposition: External Planned Provider: : DCP follow-up note: Order received for hospice. Court order reviewd which gave consent for hospice service. [facility] hospice consulted and referral faxed to their office. Will await admisison determination from [facility]. Spoke to Jarad with [facility] re: referral information. Nhung Diana
--- NOTE | 2016-11-13 15:01 | NUR ---
Appended by Nhung Diana on 11/13/2016 15:00: spoke to Aruna Calderón - [facility] Guardian - [phone]- Discussed Right Of Choice with Aruna. [facility] for inpatient services was selected. Kia RN with [facility] here evaluating pateint for inpatient care. Kia to fax legals to Aruna who agreed to sign and fax back. Aruna verbalized understanding that once patient was admitted into hospice patient will be confort care only.
--- NOTE | 2016-11-13 18:09 | NUR ---
LEGALS SIGNED FOR HOSPICE PER STATE. PT DCD.
== END 2016-11-13 18:20 | disposition hospice, inpatient (51) | DRG 870 ==
LOC: D.ER 02:47 → D.ICU 06:26 → D.M2 11-10 14:39 → D.ICU 11-11 08:53
PROVIDERS: Emergency Medicine; Family Medicine Adult Medicine; Internal Medicine Pulmonary Disease; ADMIT Family Medicine
PROC: 02HV33Z Insertion of Infusion Device into Superior Vena Cava, Percutaneous Approach (ICD-10-PCS; principal; 2016-10-30)
PROC: 5A1955Z Respiratory Ventilation, Greater than 96 Consecutive Hours (ICD-10-PCS; 2016-10-30)
PROC: 0BH17EZ Insertion of Endotracheal Airway into Trachea, Via Natural or Artificial Opening (ICD-10-PCS; 2016-10-30)
PROC: 0T9B70Z Drainage of Bladder with Drainage Device, Via Natural or Artificial Opening (ICD-10-PCS; 2016-10-30)
DX: A41.9 Sepsis, unspecified organism (principal); R65.21 Severe sepsis with septic shock; J69.0 Pneumonitis due to inhalation of food and vomit; J15.1 Pneumonia due to Pseudomonas; G93.41 Metabolic encephalopathy; J96.21 Acute and chronic respiratory failure with hypoxia; E87.0 Hyperosmolality and hypernatremia; J98.11 Atelectasis; E86.0 Dehydration; I25.10 Atherosclerotic heart disease of native coronary artery without angina pectoris; R00.1 Bradycardia, unspecified; M81.0 Age-related osteoporosis without current pathological fracture; I73.9 Peripheral vascular disease, unspecified; F20.9 Schizophrenia, unspecified; Z78.1 Physical restraint status; E87.6 Hypokalemia; Z66 Do not resuscitate; G30.9 Alzheimer's disease, unspecified; F02.80 Dementia in other diseases classified elsewhere, unspecified severity, without behavioral disturbance, psychotic disturbance, mood disturbance, and anxiety; Z86.73 Personal history of transient ischemic attack (TIA), and cerebral infarction without residual deficits; N18.9 Chronic kidney disease, unspecified; T17.990A Other foreign object in respiratory tract, part unspecified in causing asphyxiation, initial encounter; X58.XXXA Exposure to other specified factors, initial encounter

== ENCOUNTER 2016-11-13 18:21 | Inpatient (IN) | payer OTHER ==
[~2016-11-13] VITALS: Ht 185.4 cm; Wt 100.0 kg
[~2016-11-13 18:21] MED LIST: ACETAMINOPHEN325 MG PT; ALDACTONE25 MG PT; ATIVAN0.5 MG PT; BAYER CHEWABLE81 MG PT; DEPAKENE 2250 MG/5 M PT; LASIX40 MG PT; LOMOTIL TABLET1 TAB PT; MAG-OX 400 MG400 MG PT; MILK OF MAGNESI30 ML PT; NATURAL VEGETA283 G1 PT; OMEPRAZOLE20 M1 PT; PROSTAT PT; SEROQUEL100 MG PT; SYNTHROID100 MCG PT; TUMS X-STR300 MG PT; VITAMIN D3400 UNI1 PT
[2016-11-13 18:26] VITALS: BP 132/76; Ht 185.4 cm; Wt 100.0 kg
--- NOTE | 2016-11-13 19:00 | NUR ---
1900: Hospice staff at bedside. Report rec'd and care assumed. Pt remains on air sampling and monitoring ST 100's with frequent PVCs seen, Pt breathing via 100% NRB 28x with SPO2 82% at this time.
[2016-11-13 20:00] VITALS: BP 108/68
--- NOTE | 2016-11-13 21:30 | NUR ---
2130: Pt tachypnea 32x at this time. MSO4 IV at this time as per orders.
[2016-11-14] VITALS: BP 118/78
--- NOTE | 2016-11-14 | NUR ---
0000: No change in pt RESP/CV/NV status. No change in IVF/UOP. Pt remains ST with PVCs on CM, [id number] with SPO2 85% on 100% NRB. Pt repostioned for comfort with extrem off bed with pillow support. Pt grimmaces with movement.
--- NOTE | 2016-11-14 03:00 | NUR ---
0300: Bath and linen change done at this time. Pt repositioned for comfort. Pt remains ST with PVCs on CM (increased HR with stimulation) Pt remains breathing [id number] with SPO2 88%. NT suction produces large amount of fernandes/yellow Sx and SPO2 improved to 92% with 100% NRB.
[2016-11-14 05:00] VITALS: BP 107/62
--- NOTE | 2016-11-14 05:30 | NUR ---
0530: Pt repositoned for comfort. No changes in RESP/CV/NV status. No change in resp status and remains on 100% NRB.
[2016-11-14 07:24] VITALS: BP 130/99
--- NOTE | 2016-11-14 08:21 | NUR ---
OPEN EYES AND HAS SOME GARBLED SPEECH. GET VERY AGITATED WHEN SUCTIONED ORALLY AND ORAL CARE DONE. REST WHEN LEFT ALONE. COUGHING UP YELLOW SPUTUM. LUNGS CONGESTED BILATERALLY EXP AND INSP WHEEZING NOTED. ABD LARGE DISTENDED LOOKING. PEG NOTED INABD. CLAMPED. HYPOACTIVE BOWEL SOUNDS PRESENT. 1+ EDEMA IN ALL EXTREMITIES
--- NOTE | 2016-11-14 11:04 | NUR ---
REPOSITIONED IN BED ON LEFT SIDE. BECOMES AGITATED WITH MINIMAL STIMULATION ATIVAN 1 MG IV GIVEN. MEDS EFFECTIVE PATEINT IS RESTING WELL.
[2016-11-14 11:49] VITALS: BP 111/74
--- NOTE | 2016-11-14 12:24 | NUR ---
REPORT CALLED TO NURSE, MOVING TO ROOM 2113 PER BED. HOSPICE HAS BEEN HERE.
--- NOTE | 2016-11-14 13:07 | NUR ---
RECEIVED PATIENT VIA BED FROM ICU. PATIENT IS ON HOSPICE. RESP SHALLOW, LABORED, USE OF ACCESSORY MUSCLES NOTED. DROPLET ISOLATION FOR PSUEDOMONAS. F/C DRAINING DARK STRAW COLOR URINE. NON BREATHER MASK AT 15L/MIN. 131/80, 105, 30, 98.0, 02 SAT 84% ON NON REBREATHER MASK AT 15L/MIN
--- NOTE | 2016-11-14 13:19 | NUR ---
MEDICATED WITH ATROPINE AT THIS TIME, PATIENT VERY GURGLEY SOUNDING.
--- NOTE | 2016-11-14 13:35 | NUR ---
MEDICATED WITH ATIVAN AND MORPHINE AT THIS TIME PATIENT IS "AIR HUNGRY" AND RESTLESS. WILL CONTINUE TO MONITOR
--- NOTE | 2016-11-14 14:01 | NUR ---
PATIENT LYING IN BED, AIR HUNGER IS NOT SEVERE IT WAS PRIOR TO MEDICATING WITH ATIVAN, MORPHINE AND ATROPINE GTTS HOWEVER PATIENT CONTINUES WITH USE OF ACCESSORY MUSCLES. NON REBREATHER MASK AT 15 L/MIN. CALL LIGHT WITHIN REACH. NO FAMILY.
--- NOTE | 2016-11-14 14:52 | NUR ---
MEDICATED WITH ATROPINE GTTS AT THIS TIME PATIENT SOUNDS GURGLY. 15 LITERS/MIN ON NON REBREATHER MASK. 108/64, 109, 36, 98.4, 89%
--- NOTE | 2016-11-14 16:47 | NUR ---
MEDICATED WITH MORPHINE AND ATIVAN AT THIS TIME FOR RESTLESSNESS AND AIR HUNGER. CONTINUES TO USE ACCESSORY MUSCLES. COMFORT MEASURES PROVIDED.
--- NOTE | 2016-11-14 19:57 | NUR ---
ASSESSMENT COMPLETE, RESTING WITH EYES CLOSED, RESPERATIONS SHALLOW ON 15 LITER NON REBREATHER MASK. PEG TUBE CLAMPED. MCQUEEN DRAINING TO GRAVITY, BED ALARM IN USE, SIDE RAILS UP X2. WILL CONT TO MONITOR.
[2016-11-14 20:00] VITALS: BP 97/55
--- NOTE | 2016-11-14 21:42 | NUR ---
REPOSITIONED IN BED FOR COMFORT.
--- NOTE | 2016-11-14 23:18 | NUR ---
DISEASE CASE MANAGER RN AT BED SIDE, BATH AND LINEN CAHNGE COMPLETE.
--- NOTE | 2016-11-14 23:45 | NUR ---
MORPHINE 1 MG GIVEN FOR S/S PAIN, ATROPINE 2 DROPS GIVEN FOR CONGESTION.
--- NOTE | 2016-11-15 00:19 | NUR ---
DIETARY SERVICE AIDE AT BED SIDE TO OBTAIN VITALS. WILL CONT PLAN OF CARE.
--- NOTE | 2016-11-15 04:00 | NUR ---
RESPERATIONS SHALLOW, OXIMIZER AT 15 LITER, NO S/S DISCOMFORT NOTED. WILL CONT TO MONITOR.
--- NOTE | 2016-11-15 07:10 | NUR ---
RECEIVED REPORT. ASSUMED CARE OF PATIENT. REMAINS ON HOSPICE FOR COMFORT CARE. REMAINS IN DROPLET ISOLATION FOR PSUEDOMONAS IN SPUTUM. USE OF ACCESSORY MUSCLES NOTED, RESPIRATIONS LABORED. WILL CONTINUE TO MONITOR AND PROVIDED COMFORT MEASURES.
--- NOTE | 2016-11-15 08:01 | NUR ---
MEDICATED FOR AIR HUNGER/RESTLESSNESS/AND GURGLEY SOUNDING. VS 96/51, 100.0, 113, 34, 89% ON 15 L/MIN NON REBREATHER MASK. COMFORT MEASURES PROVIDED.
[2016-11-15 08:15] VITALS: BP 96/51
--- NOTE | 2016-11-15 11:36 | NUR ---
PATIENT MEDICATED FOR AIR HUNGER AT THIS TIME. O2 SAT AT 76%. COMFORT MEASURES PROVIDED.
--- NOTE | 2016-11-15 14:10 | NUR ---
1405 THIS INFORMATICS APPLICATION ANALYST ENTERED ROOM TO ADMINISTER MEDICATION PATIENT WAS HAVING "AIR HUNGER" AT 1401. PATIENT FOUND AT 1405 TO HAVE NO RESPIRATIONS AND NO PULSE. HOSPICE NURSE ON UNIT AND NOTIFIED OF PATIENT HAVING NO RESPIRATIONS AND NO PULSE. MEDICATION RETURNED TO [facility] AND ACT ENGLISH TUTOR STATES THAT SHE HAS CALLED AND HE IS ON HIS WAY UP TO THE UNIT AT THIS TIME.
--- NOTE | 2016-11-15 16:30 | NUR ---
1405 FOUND PT 1406 HOSPICE NURSE ON UNIT AND NOTIFIED 1407 NOTIFIED OF , HE IS ON HIS WAY TO THE UNIT. 1410 AIRPLANE CHARTER CLERK NOTIFIED RUBINWILL GRIGSBY OF PATIENT , PUBLIC LORET[place] [phone]. 1417 SHANK BONER NOTIFIED 1426 HERE TO PRONOUCE 1448 BENITEZ CALLED, SPOKE WITH JACINTA. PATIENT NOT A CANDIDATE DUE TO SEPSIS. REFERENCE NUMBER [id number] MANUFACTURING PLANT CONTROLLER NUNU YANG NOTIFIED 1506 [facility] NOTIFIED 1532 CENTRAL LINE AND MCQUEEN CATH REMOVED 1626 HOME HERE FOR 1629 [facility] LEFT UNIT WITH PATIENT. PATIENT HAD NO PERSONAL BELONGINGS.
== END 2016-11-15 14:26 | DRG 951 ==
LOC: D.M2 18:21 → D.ICU 18:21 → D.M2 11-14 13:05
PROVIDERS: ADMIT Legal Medicine
DX: Z51.5 Encounter for palliative care (principal)